=== PATIENT | female | born 1960 | race Caucasian/White ===

== ENCOUNTER 2017-02-26 16:45 | Inpatient (IN) | payer BC ==
[~2017-02-26] VITALS: Ht 152.4 cm; Wt 93.5 kg
[2017-02-26 17:30] VITALS: BP 101/63
[2017-02-26] MEDS ORDERED: ASPI-983 PO (18:38)
[2017-02-26] MEDS ORDERED: DILT120C82 PO (18:38)
[2017-02-26] MEDS ORDERED: POTA99TA7 PO (18:38)
[2017-02-26] MEDS ORDERED: HYDR12.5 PO (18:38)
[2017-02-26] MEDS ORDERED: LISI40TA PO (18:38)
[2017-02-26] MEDS ORDERED: METF1000 PO (18:38)
[2017-02-26] MEDS ORDERED: GABA-488 PO (18:38)
[2017-02-26] MEDS ORDERED: HYDR-3820 PO (18:38)
[2017-02-26] MEDS ORDERED: DICL50TA4 PO (18:38)
[2017-02-26] MEDS ORDERED: PEDI1TAB46 PO (18:38)
[2017-02-26] MEDS ORDERED: APIX5TAB PO (18:38)
[2017-02-26] MEDS: GABAPENTIN 300 MG (NEURONTIN) CAP PO SCH (20:24)
[2017-02-26] MEDS: inSUlin ASPART (NovoLOG) 1 UNIT/0.01 ML (CHARGE PER UNIT) SC SCH (20:24)
[2017-02-26] MEDS: ASPIRIN E.C. 81 MG (ECOTRIN) TAB PO SCH (20:24)
[2017-02-26] MEDS: APIXABAN 5 MG (ELIQUIS) TABLET PO SCH (20:24)
--- NOTE | 2017-02-26 23:01 | HISTORY AND PHYSICAL ---
DATE OF SERVICE: CHIEF COMPLAINT: Difficulty with walking. HISTORY OF PRESENT ILLNESS: The patient is a 57-year-old employed female who lives in [place], [place], who was admitted to [facility] in [place] for elective left total knee replacement for painful DJD refractory to conservative care. Postoperatively, she has shortness of breath and evaluation revealed a PE. The patient was seen by their hospitalist, Dr. Bojorquez and placed on Eliquis. The patient remained O2 dependent postoperatively and the patient is now referred to inpatient rehabilitation unit for ongoing therapies with the approval of her commercial health insurance.She also developed A FIb and meds provide for control of that. Currently, she requires assistance for her ADLs and mobility skills. She is min assist for transfers and gait with WW.Patient is SBA for upper body dressing and min assist for lower body dressing She had been independent prior to this. PAST MEDICAL HISTORY: Arthritis, claustrophobia, diabetes, hypertension, mitral valve prolapse. PAST SURGICAL HISTORY: x3, cholecystectomy, hernia repair. ALLERGIES: No known medication allergies. FAMILY HISTORY: Thyroid disease, diabetes, cancer, hypertension. SOCIAL HISTORY: No tobacco, occasional alcoholic beverage. Employed full-time. . Lives in a 2 story home. PCP: Dr. Nathaniel Mckenna REVIEW OF SYSTEMS: A 10-point review of systems significant for shortness of breath, knee pain. MEDICATIONS: Tramadol 50 mg p.o. q.6 hours p.r.n. pain, hydrocodone/APAP 10/325 one to 2 tablets p.o. q.4 hours p.r.n. pain, Tylenol 500 mg 2 tablets p.o. q.6 hours p.r.n. mild pain or fever, ferrous sulfate 325 mg p.o. daily. PHYSICAL EXAMINATION: Significant for. GENERAL: Significant for a pleasant female, appearing her stated age, alert and oriented, lying in bed, no acute distress. VITAL SIGNS: Within normal limits. She is afebrile. O2 sats are 92% on 2 liters of O2 by nasal cannula. HEENT: Vision speech hearing grossly intact. No oral lesion is noted. NECK: Supple without mass. HEART: Regular rhythm. LUNGS: Clear. ABDOMEN: Obese, soft, benign. Bowel sounds present. EXTREMITIES: The patient has a clean, dry, island dressing over the left knee. There is no calf tenderness, a slight edema in the left ankle. MUSCULOSKELETAL: The patient has functional strength and active range of motion both upper extremities and right lower extremity. Left knee with limited strength and AROM due to recent surgery.Left knee flexion 70 degrees/ extension +5 degrees She is able to active ankle dorsi and plantar flex. Sensation is grossly intact to touch. Cognitation grossly intact. ASSESSMENT: 1. Ambulatory dysfunction secondary degenerative joint disease left knee, status post left total knee replacement. Dr. Dang, [facility] in [place], [place]. 2. Postop pulmonary embolism, on Eliquis. 3. Postop respiratory insufficiency, on O2 by nasal cannula supplement. 4. Hypertension controlled medication. 5. Degenerative joint disease of the right knee. 6. Diabetes mellitus - metformin resumed. 7. Hypertension, controlled with medication. 8. Mitral valve prolapse. 9. New onset A FIB controlled with cardiazem PLAN: The patient was admitted to inpatient rehabilitation unit for a comprehensive program of orthopedic rehabilitation with goal of maximizing level of functional independence prior to discharge home with home health care. The patient will have PT, OT 90 minutes per day each discipline, 5 days a week for gait, strengthening, conditioning, passive and active range of motion of the left knee. ADL training, any patient family caregiver training necessary or any adaptive equipment and training necessary. Follow up with the hospitalist and Dr. Dang, orthopedics as per their schedule. Continue current medications Eliquis for further DVT prophylaxis and treatment of pulmonary embolism. Respiratory therapy to assist with O2 administration and monitoring O2 sats wean as able. Speech therapy to do cognitive assessment and treat as indicated. human services manager for discharge planning, community reentry. Estimated length of stay 7 to 10 days. PROGNOSIS: Rehab prognosis appears good for goal of discharging home with home health care modified independent to supervision for ADLs and mobility skills. DIET: Regular. CODE STATUS: Full code. Note: The patient's orthopedist diagnostic assistant called me with report today. The patient is weightbearing as tolerated. Job ID: [id number] DocumentID: [id number] Dictated Date: 02/26/2017 17:38:56 Associate Professor Of Sociology Date: 02/26/2017 23:01:04 Dictated By: HIREN BURNETT MD [facility]
[2017-02-27 05:57] VITALS: BP 120/72
[2017-02-27] MEDS: inSUlin ASPART (NovoLOG) 1 UNIT/0.01 ML (CHARGE PER UNIT) SC SCH ×4 (06:00→20:36)
[2017-02-27] MEDS: MULTIVIT W/MINERALS TAB (THERAGRAN M) PO SCH (06:14)
[2017-02-27] MEDS: HYDROcodone/APAP 10 MG/325 MG (LORTAB) TAB PO PRN ×2 (06:15→11:35)
[2017-02-27] MEDS ORDERED: INFLUENZA TRIvalent 2017-2018 0.5 ML/45 MCG SYR IM ONE (07:30)
[2017-02-27] MEDS: GABAPENTIN 300 MG (NEURONTIN) CAP PO SCH ×3 (08:18→20:36)
[2017-02-27] MEDS: APIXABAN 5 MG (ELIQUIS) TABLET PO SCH ×2 (08:18→20:36)
[2017-02-27] MEDS: HYDROCHLOROTHIAZIDE 12.5 MG (HCTZ) CAP PO SCH (08:18)
[2017-02-27] MEDS: lisINopril 20 MG (ZESTRIL) TAB PO SCH (08:18)
[2017-02-27] MEDS: ASPIRIN E.C. 81 MG (ECOTRIN) TAB PO SCH ×2 (08:18→20:36)
[2017-02-27] MEDS: DILTIAZEM 120 MG (CARDIZEM CD) CAP PO SCH (08:18)
--- NOTE | 2017-02-27 09:27 | Consultation-Hospitalist ---
HPI History of Present Illness: HPI/Chief Complaint CC: Medical management for new onset AF w/RVR and acute PE following left total knee replacement HPI: This is a 57yoWF clinic patient of [facility] Ferrell in [place], [place] and rarely sees Dr Dillard Cardiology for "fluttering" she experiences on occasion but "does not require any treatment for it" who presents to the IRU following slow recovery at [facility] in [place], [place] which included AF w/RVR on Sunday of which I managed conservatively with Lopressor 5mg IV x 3 doses 5 minutes before then maintained on PO Cardizem CD 120mg po daily but then did not ambulate well post- operatively and sustained an acute PE diagnosed on CT angiogram after suspicion from RN due to new oxygen requirement and tachycardia required the workup. She was placed on Lovenox 1mg/kg SQ at time of CT findings and then started on Eliquis which was started at 2100 last night. Currently she is doing well but did require O2 last night and feels really good. I talked to her about ROSIBEL and she suspects she has that condition but has never been tested and sometimes wakes up at night gasping for air. I spoke to Dr Barrera and he will see her in consultation. Source: patient Exam Limitations: no limitations Date Seen 02/27/17 Attending Physician Cj Zuñiga MD PCP No,Local Physician Referring Physician Date of Admission Feb 26, 2017 at 17:25 Home Medications & Allergies Home Medications Reviewed patient Home Medication Reconciliation Form Allergies Allergies Coded Allergies No Known Allergies (Verified Allergy, Unknown, 02/26/17) Past Bvpaoci-Bkiijt-Ycgnzd Hx Patient Social History Marrital Status: single Employed/Student: employed Alcohol Use: Denies Use Recreational Drug Use: No Smoking Status: Never a Smoker Physical Abuse Screen: No Sexual Abuse: No Recent Foreign Travel: No Contact w/other who traveled: No Recent Hopitalizations: Yes (LEFT TKR) Recent Infectious Disease Expo: No Seasonal Allergies Seasonal Allergies: Yes Surgeries Yes Orthopedic Respiratory Yes (PE dx post operatively 02/26/17) Currently Using CPAP: No Currently Using BIPAP: No Cardiovascular Yes Irregular Heartbeat Neurological No Genitourinary No Gastrointestinal No Musculoskeletal Yes Arthritis Endocrine History of Endocrine Disorders: Yes Endocrine Disorders: Diabetes, Non-Insulin dep Are Your Blood Sugars Over 250: No HEENT History of HEENT Disorders: No Cancer No Psychosocial History of Psychiatric Problem: Yes Behavioral Health Disorders: Depression Integumentary History of Skin or Integumenta: No Blood Transfusions History of Blood Disorders: No Family Medical History Family Hx: Cervical cancer DAUGHTERS FH: breast cancer 19 MOTHER FH: skin cancer DAUGHTERS DAUGHTERS Review of Systems Constitutional: see HPI, weakness EENTM: no symptoms reported Respiratory: dyspnea on exertion Cardiovascular: no symptoms reported Gastrointestinal: no symptoms reported Genitourinary: no symptoms reported Musculoskeletal: joint pain Skin: no symptoms reported Psychiatric/Neurological: No Symptoms Reported All Other Systems Reviewed Negative Unless Noted: Yes Physical Exam Physical Exam Vital Signs Vital Sign - Last 12Hours 02/26/17 02/26/17 17:30 20:00 Temp 100.6 Pulse 82 Resp 18 B/P (MAP) 101/63 Pulse Ox 93 O2 Delivery Nasal Cannula O2 Flow Rate 2.00 Capillary Refill : General Appearance: No Apparent Distress, WD/WN, Chronically ill, Obese Eyes: Bilateral Eye Normal Inspection, Bilateral Eye PERRL HEENT: PERRL/EOMI, Normal ENT Inspection, Pharynx Normal Neck: Full Range of Motion, Normal Inspection, Non Tender, Supple, Carotid Bruit, Other (increased circumference of neck) Respiratory: Chest Non Tender, Lungs Clear, Normal Breath Sounds, No Accessory Muscle Use, No Respiratory Distress Cardiovascular: Regular Rate, Rhythm, No Edema, No Gallop, No JVD, No Murmur, Normal Peripheral Pulses Gastrointestinal: Normal Bowel Sounds, No Organomegaly, No Pulsatile Mass, Non Tender, Soft Back: Normal Inspection, No CVA Tenderness, No Vertebral Tenderness Extremity: Normal Capillary Refill, Normal Inspection, Normal Range of Motion, Non Tender, No Calf Tenderness, No Pedal Edema Neurologic/Psychiatric: Alert, Oriented x3, No Motor/Sensory Deficits, Depressed Affect Skin: Normal Color, Warm/Dry Lymphatic: No Adenopathy Assessment/Plan Admission Diagnosis Assessment: Slow recovery following left total knee replacement per Dr Dang POD # [address] Acute PE dx on CT angiogram 02/26/17 at [facility] following left total knee replacement and slow ambulation post operatively placed on lovenox one time dose 1mg/kg then started Eliquis 10mg PO BID for 7 days then 5mg PO BID New onset AF w/RVR documented on EKG and Tely on Sunday02/24/17 managed with Lopressor 5mg IV x 3 doses then placed on Cardizem and now on Cardizem and NSR currently DM High risk of ROSIBEL consulting Dr Barrera HTN Hypokalemia Post op anemia Assessment and Plan Plan: Consult Dr Barrera for suspected ROSIBEL Eliquis as ordered treatment for acute PE Cardizem to maintain NSR for AF w/RVR Appreciate Dr Mcdaniel's help PT/OT Clinical Quality Measures DVT/VTE Risk/Contraindication: Risk Factor Score Per Nursin RFS Level Per Nursing on Admit: 3=High TREY AMATO DO Feb 27, 2017 09:27
[2017-02-27] MEDS ORDERED: HYDROcodone/APAP 10 MG/325 MG (LORTAB) TAB PO PRN (09:30)
--- NOTE | 2017-02-27 10:08 | Pulmonary Consultation ---
History of Present Illness History of Present Illness Date of Consultation 02/27/17 09:48 Date of Admission Allergies and Home Medications Allergies Coded Allergies: No Known Allergies (Verified Allergy, Unknown, 02/26/17) Home Medications Apixaban 5 Mg Tablet, 10 MG PO BID, #14 (Reported) 2 TABLETS TWICE DAILY X 7 DAYS Apixaban 5 Mg Tablet, 5 MG PO BID, (Reported) TO START AFTER ELIQUIS 10 MG BID X 7 DAYS Aspirin 81 Mg Tablet.dr, 81 MG PO BID, (Reported) Diclofenac Potassium 50 Mg Tablet, 50 MG PO TID, (Reported) Diltiazem HCl 120 Mg Cap.er.24h, 120 MG PO DAILY, (Reported) Gabapentin 300 Mg Capsule, 300 MG PO TID, (Reported) Hydrochlorothiazide 12.5 Mg Capsule, 12.5 MG PO DAILY, (Reported) Hydrocodone/Acetaminophen 1 Each Tablet, 2 TAB PO Q4H PRN for PAIN-MODERATE, ( Reported) Lisinopril 40 Mg Tablet, 40 MG PO DAILY, (Reported) Metformin HCl 1,000 Mg Tablet, 1,000 MG PO BID, (Reported) Pediatric Multivit Comb No.76 1 Each Tab.chew, 1 TAB PO DAILY, (Reported) Potassium 99 Mg Tablet, 99 MG PO DAILY, (Reported) Past Yqzogth-Vyatvu-Bufxwb Hx Patient Social History Alcohol Use: Denies Use Recreational Drug Use: No Smoking Status: Never a Smoker Recent Foreign Travel: No Contact w/Someone Who Travel: No Recent Infectious Disease Expo: No Recent Hopitalizations: Yes (LEFT TKR) Seasonal Allergies Seasonal Allergies: Yes Surgeries History of Surgeries: Yes Surgeries: Orthopedic Respiratory History of Respiratory Disorde: Yes (PE dx post operatively 02/26/17) Respiratory Disorders: Pulmonary Embolism Currently Using CPAP: No Currently Using BIPAP: No Cardiovascular History of Cardiac Disorders: Yes Cardiac Disorders: Irregular Heartbeat Neurological History of Neurological Disord: No Genitourinary History of Genitourinary Disor: No Gastrointestinal History of Gastrointestinal Di: No Musculoskeletal History of Musculoskeletal Dis: Yes Musculoskeletal Disorders: Arthritis Endocrine History of Endocrine Disorders: Yes Endocrine Disorders: Diabetes, Non-Insulin dep Are Your Blood Sugars Over 250: No HEENT History of HEENT Disorders: No Cancer History of Cancer: No Psychosocial History of Psychiatric Problem: Yes Behavioral Health Disorders: Depression Integumentary History of Skin or Integumenta: No Blood Transfusions History of Blood Disorders: No Family Medical History Family Medial History: Cervical cancer DAUGHTERS FH: breast cancer 19 MOTHER FH: skin cancer DAUGHTERS DAUGHTERS Exam Exam Vital Signs Date Time Temp Pulse Resp B/P (MAP) Pulse Ox O2 Delivery O2 Flow Rate FiO2 02/27/17 07:17 1.00 02/27/17 07:00 99.1 02/27/17 05:57 100.2 90 18 120/72 95 Nasal Cannula 2.00 02/26/17 22:46 92 2.00 02/26/17 20:01 Nasal Cannula 2.00 02/26/17 20:00 Nasal Cannula 2.00 02/26/17 17:30 100.6 82 18 101/63 93 General Appearance: No Apparent Distress, WD/WN, Chronically ill, Obese HEENT: PERRL/EOMI, Normal ENT Inspection, Pharynx Normal Neck: Full Range of Motion, Normal Inspection, Non Tender, Supple, Carotid Bruit, Other (increased circumference of neck) Respiratory: Chest Non Tender, Lungs Clear, Normal Breath Sounds, No Accessory Muscle Use, No Respiratory Distress Cardiovascular: Regular Rate, Rhythm, No Edema, No Gallop, No JVD, No Murmur, Normal Peripheral Pulses Extremity: Normal Capillary Refill, Normal Inspection, Normal Range of Motion, Non Tender, No Calf Tenderness, No Pedal Edema Neurologic/Psychiatric: Alert, Oriented x3, No Motor/Sensory Deficits, Depressed Affect Skin: Normal Color, Warm/Dry Lymphatic: No Adenopathy Clinical Quality Measures DVT/VTE Risk/Contraindication: Risk Factor Score Per Nursin RFS Level Per Nursing on Admit: 3=High SPIKE ALTAMIRANO DO Feb 27, 2017 10:08
--- NOTE | 2017-02-27 10:27 | PM&R Post Admission Assessment ---
Post Admission Physician Asses The preadmission screen agrees with the post admission assessment that the patient is a good candidate for inpatient rehabilitation. The patient will have a comprehensive program of inpatient rehabilitation with a goal of maximizing level of functional independence prior to discharge home with family and HHC. The patient will have PT/OT ninety minutes per day, each discipline, five days a week for gait, strengthening, conditioning, balance, ADLs, any patient/family/caregiver training as necessary. Speech therapy to do cognitive assessment and treat as indicated. Rehabilitation nursing to assist with bowel, bladder, skin, wound care, medication administration, pain management. Technical Support Director to assist with discharge planning, community reentry. SCD's for DVT prophylaxis. She appears to be well motivated to participate in three hours of therapy a day. She should be able to tolerate three hours of therapy a day from a medical and surgical standpoint. She should benefit from the three hours of therapy a day. She has a reasonable discharge plan, reasonable discharge rehabilitation goals and a supportive family. She has various comorbidities that need to be closely monitored with medications and treatments adjusted on a daily basis as needed. These include: Postop PULM embolism on 02 supplement Post op Afib on meds DM Probable ROSIBEL HTN Hypokalemia Postop anemia Barriers to discharge for this patient who had been independent prior to this are for her to be modified independent to supervision for ADLs and mobility skills prior to discharge home with [family], so as to lessen the burden of the caregivers. Risks for this patient include: 1. Fall 2. Fracture 3. DVT 4. Recurrent Pulmonary embolism 5. Wound infection 6. Skin breakdown 7. Contractures 8. Poorly controlled pain 9. Urinary retention 10. UTI 11. Respiratory infection 12. Aspiration 13. Poorly controlled DM 14. Poorly controlled HTN 15.Worsening Resp insufficiency 16.Worsening Electrolyte abnormailty 17. Worsening Postop anemia Estimated Length of Stay: 10 days Prognosis: Rehab prognosis appears good for goal of discharge home with family and HHC modified independent to supervision for ADLs and mobility skills. HIREN BURNETT MD Feb 27, 2017 10:27
--- NOTE | 2017-02-27 10:34 | PM & R (SOAP) Progress Note ---
Subjective Time Seen by Provider: 10:20 Subjective/Events-last exam Patient was seen in the [facility] this AM Adjusting well to unit. Appreciate DR Woody notes and orders. Accuchecks noted Review of Systems Pulmonary: Dyspnea Musculoskeletal: leg pain Objective Exam Last Set of Vital Signs Vital Signs Date Time Temp Pulse Resp B/P (MAP) Pulse Ox O2 Delivery O2 Flow Rate FiO2 02/27/17 09:00 Nasal Cannula 2.00 02/27/17 07:00 99.1 02/27/17 05:57 90 18 120/72 95 Capillary Refill : I&O Intake and Output 02/28/17 00:00 Intake Total 300 ml Balance 300 ml Intake Oral 300 ml # Voids 2 # Bowel Movements 1 General: Alert, Oriented X3, Cooperative, No Acute Distress HEENT: Atraumatic, PERRLA, EOMI, Mucous Memb Moist/Novelty, Other (02 by N/C in place) Neck: Supple, No JVD Lungs: Clear to Auscultation Heart: Regular Rate Abdomen: Normal Bowel Sounds, Soft, No Tenderness Extremities: Other (island dressing left knee) Neuro: Other (Limited AROM of left knee otherwise functional strength) Results Lab Laboratory Tests 02/26/17 20:22: Glucometer 187H 02/27/17 05:51: Glucometer 134H Assessment/Plan Assessment S/P LTKR for painful DJD OSH Postop afib now controlled with meds Postop PE on Eliquis Postop Resp insuffiency on supplemental 02 DM controlled Possible ROSIBEL DR Barrera has seen today HTN controlled Hypokalemia Postop anemia Plan Continue PT/OT Team Conference tomorrow F/u with DR Fuentes and Ortho prn Wean from 02 as able if OK with DR Barrera. HIREN BURNETT MD Feb 27, 2017 10:34
--- NOTE | 2017-02-27 10:50 | Physical Therapy Evaluation ---
PT Evaluation-General Medical Diagnosis Admission Date Feb 26, 2017 at 17:25 Medical Diagnosis: left TKA and pulmonary embolism Onset Date: Feb 26, 2017 Therapy Diagnosis Therapy Diagnosis: impaired mobility, strength, endurance, ROM Height/Weight Height (Feet): 5 Height (Inches): 0.00 Weight (Pounds): 206 Weight (Ounces): 1.6 Precautions Precautions/Isolations: Fall Prevention, Standard Precautions Weight Bear Status Right Lower Extremity: Right Full Weight Bearing Left Lower Extremity: Left Weight Bearing/Tolerated Referral Physician: Yogesh Reason for Referral: Evaluation/Treatment Medical History Pertinent Medical History: Arthritis, DM, HTN Additional Medical History claustrophobia, mitral valve prolapse, x3, cholecystectomy, hernia repair Current History Patient had a left TKA and postoperatively had a PE Reviewed History: Yes Social History Home: Single Level Current Living Status: Entry Into Home: Ramp Patient states she will be going to stay with a friend for a while after discharge and she has a ramp to enter her home Prior/Core FIM Prior Level of Function Functional [place] Measure 0=Not Assessed/NA 4=Minimal Assistance 1=Total Assistance 5=Supervision or Setup 2=Maximal Assistance 6=Modified [place] 3=Moderate Assistance 7=Complete [place] Bed Mobility: 6 Transfers (B,C,W/C) (FIM): 6 Gait: 6 Patient states that shortly before her surgery she was using a rolling walker PT Evaluation-Current Subjective Patient in bed pre tx, agrees to PT, has no pain at rest but 6/10 pain in her left knee during weight bearing. Patient has the polar care from the other facility but no CPM (which she states she would like to have) so we will get that set up for her. Patient came by ambulance. Pt/Family Goals "to get off the oxygen and get stronger Objective Patient Orientation: Place, Situation Attachments: Oxygen 1L of O2 nasal canula ROM/Strength ROM Lower Extremities left knee flexion 70 degrees, extension +5 degrees Strenght Lower Extremities NT due to recent surgery Integumentary/Posture Bowel Incontinence: No Neuromuscular (Tone, Coordination, Reflexes) NT Sensory Vision: Functional Hearing: Functional Sensation Left Lower Extremity: Intact Sensation Lower Extremities Patient has no complaints of numbness or tingling. Transfers Functional [place] Measure 0=Not Assessed/NA 4=Minimal Assistance 1=Total Assistance 5=Supervision or Setup 2=Maximal Assistance 6=Modified [place] 3=Moderate Assistance 7=Complete IndependenceIRFPAI Quality Coding Scale 6 Independent with activity with or without an assistive device 5 Patient requires set up or clean up by helper. Patient completes activity by themselves 4 Supervision or touching assist (CGA). [place] provide cues , steadying assist 3 The helper provides less than half the effort to complete the activity 2 The helper provides more than half the effort to complete the activity 1 Dependent. The helper does all the effort to complete an activity 7 Patient refused to complete or attempt activity 9 The patient did not perform the activity before the current illness or injury 88 Not attempted due to Medical conditions or safety concerns Transfers (B, C, W/C) (FIM): 4 Scootin Rollin Roll Left to Right (QC): 4 Supine to/from Sit: 4 Sit to/from Stand: 4 Sit to Lying (QC): 3 Lying to Sitting/Side of Bed(Q: 3 Sit to Stand (QC): 4 Patient performs bed mobility with SBA, supine <-> sit with min assist and sit to stand with CGA. Good use of hand placement and safety awareness. Gait Does the Patient Walk?: Yes Mode of Locomotion: Walk Anticipated Mode of Locomotion: Walk Gait (FIM): 4 Walk 10 feet (QC): 4 Walk 50 ft with 2 Turns(QC): 4 Walk 150 ft (QC): 4 Walking 10ft/uneven surface-QC: 4 Distance: 150'x2 Gait Level of Assist: 4 Gait Persons Needed: 1 Gait Assistive Device: FWW Comments/Gait Description Patient can ambulate 150' with a rolling walker with CGA, including 50' with at least 2 turns of 90 degrees and 10' over an uneven surface. Gait is antalgic, and has flexed left knee. Wheelchair Training Does the Pt Use a Wheelchair?: No Stairs Stairs (FIM): 2 #of Steps: 4 Level of Assist: 4 1 Step (curb) (QC): 4 4 Steps (QC): 4 12 Steps (QC): 88 Patient can go up and down 4 steps using 2 handrails with CGA. She needs close guarding due to unsteadiness and cues for foot placement. Balance Sitting Static: Normal Sitting Dynamic: Normal Standing Static: Fair Standing Dynamic: Fair Picking up an Object (QC): 88 Treatment LAQ left side for 5 min, supine total knee protocol x10 (AP, QS, HS, SAQ, SLR), parallel bars x10 (heel raises, hamstring curls, hip abd, mini-squats) Assessment/Needs Patient has impaired mobility, strength, endurance, ROM post left TKA and pulmonary embolism. Patient left with CPM donned and also [facility] care. CPM set at -2 degrees extension and 60 degrees flexion. Rehab Potential: Fair PT Short Term Goals Short Term Goals Time Frame: Mar 06, 2017 Transfers (B,C,W/C) (FIM): 5 Gait (FIM): 5 Gait Distance Comment: 250' Gait Level of Assist: 5 Gait Assistive Device: FWW PT Classroom Technology Technician Goals Classroom Technology Technician Goals PT Halfway Goals Time Frame: Mar 20, 2017 Transfers (B,C,W/C) (FIM): 6 Sit to Lying (QC): 6 Lying-Sitting on Side/Bed(QC): 6 Sit to Stand (QC): 6 Rollin Roll Left to Right (QC): 6 Car Transfer (QC): 4 Gait (FIM): 6 Distance: 300' Walk 10 feet (QC): 6 Walk 10ft-Uneven Surface(QC): 6 Walk 50ft with 2 Turns (QC): 6 Walk 150 ft (QC): 6 Gait Assistive Device: FWW Stairs (FIM): 5 # of Steps: 12 1 Step (curb) (QC): 4 4 Steps (QC): 4 12 Steps (QC): 4 Stairs Level Of Assist: 5 PT Plan Problem List Problem List: Activity Tolerance, Functional Strength, Safety, Balance, Gait, Transfer, Bed Mobility, ROM Treatment/Plan Treatment Plan: Continue Plan of Care Treatment Plan: Bed Mobility, Education, Functional Activity Dara, Functional Strength, Group Therapy, Gait, Safety, Therapeutic Exercise, Transfers Treatment Duration: Mar 20, 2017 Frequency: At least 5 of 7 days/Wk (IRF) Estimated Hrs Per Day: 1.5 hours per day Patient and/or Family Agrees t: Yes Safety Risks/Education Patient Education: Gait Training, Transfer Techniques, Steps, Reviewed Use of Ice, Correct Positioning, Disease Process, Safety Issues Teaching Recipient: Patient Teaching Methods: Demonstration, Discussion Response to Teaching: Reinforcement Needed Discharge Recommendations Plan Patient will perform bed mobility and transfer training, balance and endurance training, functional strengthening, stair training, gait training, and education , to improve functional mobility and independence at home. Therapy D/C Recommendations: Home w/ Family Support Time/GCodes Time In: 930 Time Out: 1102 Total Billed Treatment Time: 92 Total Billed Treatment 1 visit EVL 30' FA 15' GT 15' EX 30' EVON JUSTIN PT Feb 27, 2017 10:50
--- NOTE | 2017-02-27 10:58 | Occupational Therapy Eval ---
OT Evaluation-General/PLF Medical Diagnosis Admission Date Feb 26, 2017 at 17:25 Medical Diagnosis: Left TKA, PE Onset Date: Feb 23, 2017 Therapy Diagnosis Therapy Diagnosis: decreased self care skills Height/Weight Height (Feet): 5 Height (Inches): 0.00 Weight (Pounds): 206 Weight (Ounces): 1.6 Precautions Precautions/Isolations: Fall Prevention, Standard Precautions Safety Interventions: None Referral Physician: Yogesh Medical History Pertinent Medical History: Arthritis, DM, HTN Additional Medical History Mitral valve prolapse Current History Pt s/p left TKA and PE Reviewed History: Yes Social History Home: Multilevel (stays on main level) Current Living Status: Alone Entry Into Home: Stairs With Railing, Stairs Without Railing Steps Into Home: 2 Pt states she will be staying with a friend at d/c. Friend's home has a ramp to enter and a walk in shower. ADL-Prior Level of Function ADL PLOF Comments Pt reports being independent with all self care and mobility. Works as a principal mechanical engineer at the school DME/Equipment: Shower Occupation: [employer] Self: Yes OT Current Status Subjective Pt in bed, agrees to treatment. Pt reports 4/10 pain in left knee. Mental Status/Objective Patient Orientation: Person, Place, Time, Situation Attachments: Oxygen (1L) Current Glasses/Contacts: Yes (reading) Hearing Aids: No Dentures/Partials: No Hand Dominance: Right Upper Extremity ROM Grossly WFL Upper Extremity Coordination Intact Upper Extremity Strength Grossly WFL ADL-Treatment ADL-Current Pt supine to sit with supervision and increased time. Pt requests shower this morning. Gait to restroom with FWW. Transfer to toilet with CGA using FWW. Pt able to manage toileting hygiene and clothing management with SBA. Transfer to walk in shower with CGA and cues for safety. Uses grab bars for balance. Pt doffed shirt with SBA. Pt able to doff right sock, requires assist to doff left sock. Upper body bathing completed with set up. Pt unable to reach left foot without adaptive equipment. Pt used long handled sponge to wash left lower leg and foot. Don bra and pullover shirt with set up. Pt donned underwear and shorts with minimal assistance to start over left foot. Stood with CGA for balance during pant hike. Assist required to don KIRSTIE hose. Pt able to don right sock, but required assist for left sock. Instruction provided regarding use of sock aid. Pt able to don left sock with set up using sock aid. Grooming tasks completed standing at sink. Pt combed hair and brushed teeth with SBA. Pt returned to bed. Sit to supine with min assist for left LE. Pt in bed with needs met after session. Functional [place] Measure 0=Not Assessed/NA 4=Minimal Assistance 1=Total Assistance 5=Supervision or Setup 2=Maximal Assistance 6=Modified [place] 3=Moderate Assistance 7=Complete IndependenceIRFPAI Quality Coding Scale 6 Independent with activity with or without an assistive device 5 Patient requires set up or clean up by helper. Patient completes activity by themselves 4 Supervision or touching assist (CGA). [place] provide cues , steadying assist 3 The helper provides less than half the effort to complete the activity 2 The helper provides more than half the effort to complete the activity 1 Dependent. The helper does all the effort to complete an activity 7 Patient refused to complete or attempt activity 9 The patient did not perform the activity before the current illness or injury 88 Not attempted due to Medical conditions or safety concerns Eating (FIM): 7 (Pt reports feeding self, managing containers, and cutting food without assistance.) Eating (QC): 6 Grooming (FIM): 5 Oral Hygiene (QC): 4 Bathing (FIM): 4 Shower/Bathe Self (QC): 3 Upper Body Dressing (FIM): 5 Upper Body Dressing (QC): 5 Lower Body Dressing (FIM): 4 Lower Body Dressing (QC): 3 On/Off Footwear (QC): 3 Toileting (FIM): 5 Toileting Hygiene (QC): 4 Toilet/Commode Transfer (FIM): 4 (CGA) Toilet Transfer (QC): 4 (CGA) Shower Transfer (FIM): 4 (CGA) Other Treatments Pt arrived to ARU via ambulance on 02/26/17. Education OT Patient Education: Rehab process Teaching Recipient: Patient Teaching Methods: Discussion Response to Teaching: Verbalize Understanding OT Short Term Goals Short Term Goals Time Frame: Mar 06, 2017 Bathing(FIM): 5 Toilet/Commode Transfer(FIM): 5 1=Demonstrate adherence to instructed precautions during ADL tasks. 2=Patient will verbalize/demonstrate understanding of assistive devices/ modifications for ADL. 3=Patient will improve strength/tolerance for activity to enable patient to perform ADL's. OT Motor Pool Driver Goals Motor Pool Driver Goals Time Frame: Mar 20, 2017 Eating (FIM): 7 Eating (QC): 6 Groomin Oral Hygiene (QC): 6 Bathing(FIM): 6 Shower/Bathe Self (QC): 6 Upper Body Dressing(FIM): 6 Upper Body Dressing (QC): 6 Lower Body Dressing(FIM): 5 Lower Body Dressing (QC): 5 On/Off Footwear (QC): 6 Toileting(FIM): 6 Toileting Hygiene (QC): 6 Toilet/Commode Transfer(FIM): 6 Toilet/Commode Transfer (QC): 6 Shower Transfer(FIM): 6 Additional Goals: 2-Verbalize Understanding, 3-ImproveStrength/Dara 1=Demonstrate adherence to instructed precautions during ADL tasks. 2=Patient will verbalize/demonstrate understanding of assistive devices/ modifications for ADL. 3=Patient will improve strength/tolerance for activity to enable patient to perform ADL's. OT Education/Plan Problem List/Assessment Assessment: Decreased Activ Tolerance, Decreased UE Strength, Dependent Transfers, Impaired Self-Care Skills Pt s/p left TKA with post operative PE. Pt demonstrates decreased ADL functioning, mobility, strength, and activity tolerance. Pt to benefit from skilled OT intervention for ADL training, transfers, strengthening, home safety education, and adaptive equipment instruction to improve level of independence and allow safe discharge. Discharge Recommendations Plan/Recommendations: Continue POC Treatment Plan/Plan of Care Treatment,Training & Education: Yes Patient would benefit from OT for education, treatment and training to promote independence in ADL's, mobility, safety and/or upper extremity function for ADL' s. Plan of Care: ADL Retraining, Functional Mobility, Group Exercise/Act as Ind, UE Funct Exercise/Act Treatment Duration: Mar 20, 2017 Frequency: At least 5 of 7 days/Wk (IRF) Estimated Hrs Per Day: 1.5 hours per day Agreement: Yes Rehab Potential: Good Time/GCodes Start Time: 08:15 Stop Time: 09:30 Total Time Billed (hr/min): 75 Billed Treatment Time 1 visit, EVL(15minutes), ADLx4(60minutes) DASHA SHELTON OT Feb 27, 2017 10:58
--- NOTE | 2017-02-27 11:26 | ST Cognitive Linguistic Eval ---
Speech Evaluation-General Medical Diagnosis left TKA and pulmonary embolism Onset Date: Feb 26, 2017 Therapy Diagnosis Therapy Diagnosis: Cognitive Linguistic Skills WNL Precautions Precautions/Isolations: Fall Prevention, Standard Precautions Referral Referring Physician: Dr. Cj Zuñiga Reason for Referral: Evaluation/Treatment Cognitive Evaluation Medical History Pertinent Medical History: Arthritis, DM, HTN Reviewed History: Yes Social History Current Living Status: Speech PLF-Current Status Prior Level of Function The patient denied prior challenges with cognition, speech, or language. Subjective The patient was admitted to [facility] following a total knee replacement and pulmonary emboli. The patient greeted the clinician appropriately and was agreeable to participation in the cognitive evaluation. Language Eval: Auditory Comprehends Simple Yes/No Ques: Functional Indent/Objects Multiple Hurd: Functional Ident/Pics in Multiple Hurd: Functional Follows 1-Step Commands: Functional Follows Complex Directions: Functional Follows General Conversations: Functional Language Eval: Verbal Language Completes Spontaneous Greeting: Functional Produces Auto, Serial Info: Functional Imitates Simple Words/Phrases: Functional Word Finding: Functional Requests Basic Needs: Functional States Basic Personal Info: Functional Expresses Complex Ideas: Functional Cognitive Patient Orientation The patient was independently oriented to location, city, month, and year. Objective Cognitive Domain Attention: WNL Memory: WNL Problem Solving: Functional Executive Functions: WNL Objective Impression The patient displayed cognitive linguistic skills within normal limits and appropriate for completion of ADL tasks. Communication/Social Cognition Comprehension: 6 Expression: 6 Social Interaction: 6 Problem Solvin Memory: 6 Speech Patient Assess Expression of Ideas/Wants: Expression (4) Understanding [place] Content: Understands (4) Brief Interview-Mental Status: Yes Repetition of Three Words: Three (3) Temporal Orientation: Year: Correct (3) Temporal Orientation: Month: Accurate within 5 days(2) Temporal Orientation: Day: Incorrect or No Answer(0) Recall : Wear to say "Sock": Yes,after cueing (1) Recall : Color: Yes, no cue required (2) Recall : Bed: Yes, no cue required (2) Speech-Plan Treatment Plan Speech Therapy Treatment Plan: Discontinue ST Evaluation, only. Frequency: Modified Program (IRF) (Evaluation, only.) Estimated Hrs Per Day: Other (Evaluation, only.) Rehab Potential: Fair Safety Risks/Education Teaching Recipient: Patient Teaching Methods: Discussion Response to Teaching: Verbalize Understanding Education Topics Provided: Results, Recommendations, Plan of Care Time Speech Therapy Time In: 11:00 Speech Therapy Time Out: 11:15 Total Billed Time: 15 Billed Treatment Time 1, ADDIE LOBO Feb 27, 2017 11:26
[2017-02-27] MEDS: DICLOFENAC POTASSIUM 50 MG PO SCH ×2 (11:35→16:36)
[2017-02-27] MEDS ORDERED: GABAPENTIN 300 MG (NEURONTIN) CAP PO SCH (13:00)
--- NOTE | 2017-02-27 14:04 | Occupational Ther Daily Note ---
OT Current Status-Daily Note Subjective Pt in bed with family present. Pt reports 6/10 pain in left knee, requests pain meds. RN notified and provided medication. Mental Status/Objective Functional [place] Measure 0=Not Assessed/NA 4=Minimal Assistance 1=Total Assistance 5=Supervision or Setup 2=Maximal Assistance 6=Modified [place] 3=Moderate Assistance 7=Complete [place] Attachments: Oxygen ADL-Treatment Functional [place] Measure 0=Not Assessed/NA 4=Minimal Assistance 1=Total Assistance 5=Supervision or Setup 2=Maximal Assistance 6=Modified [place] 3=Moderate Assistance 7=Complete IndependenceIRFPAI Quality Coding Scale 6 Independent with activity with or without an assistive device 5 Patient requires set up or clean up by helper. Patient completes activity by themselves 4 Supervision or touching assist (CGA). [place] provide cues , steadying assist 3 The helper provides less than half the effort to complete the activity 2 The helper provides more than half the effort to complete the activity 1 Dependent. The helper does all the effort to complete an activity 7 Patient refused to complete or attempt activity 9 The patient did not perform the activity before the current illness or injury 88 Not attempted due to Medical conditions or safety concerns Other Treatment Pt in bed with CPM in place. Pt agrees to UE exercises. Pt completed bilateral UE exercises to promote increased strength needed for ADLs and transfers. Pt performed shoulder flexion, abduction, biceps curls, and triceps extension exercises x20 reps with moderate resistance (red) theraband. Rest breaks taken between exercises. Occasional cues required for proper exercise technique. Pt resting in bed with needs met and family present after session. OT Short Term Goals Short Term Goals Time Frame: Mar 06, 2017 Bathing(FIM): 5 Transfers (B,C,W/C) (FIM): 5 Toilet/Commode Transfer(FIM): 5 1=Demonstrate adherence to instructed precautions during ADL tasks. 2=Patient will verbalize/demonstrate understanding of assistive devices/ modifications for ADL. 3=Patient will improve strength/tolerance for activity to enable patient to perform ADL's. OT Residential Goals Residential Goals Time Frame: Mar 20, 2017 Eating (FIM): 7 Eating (QC): 6 Groomin Oral Hygiene (QC): 6 Bathing(FIM): 6 Shower/Bathe Self (QC): 6 Upper Body Dressing(FIM): 6 Upper Body Dressing (QC): 6 Lower Body Dressing(FIM): 5 Lower Body Dressing (QC): 5 On/Off Footwear (QC): 6 Toileting(FIM): 6 Toileting Hygiene (QC): 6 Toilet/Commode Transfer(FIM): 6 Toilet/Commode Transfer (QC): 6 Shower Transfer(FIM): 6 Additional Goals: 2-Verbalize Understanding, 3-ImproveStrength/Dara 1=Demonstrate adherence to instructed precautions during ADL tasks. 2=Patient will verbalize/demonstrate understanding of assistive devices/ modifications for ADL. 3=Patient will improve strength/tolerance for activity to enable patient to perform ADL's. OT Education/Plan Discharge Recommendations Plan/Recommendations: Continue POC Treatment Plan/Plan of Care Patient would benefit from OT for education, treatment and training to promote independence in ADL's, mobility, safety and/or upper extremity function for ADL' s. Plan of Care: ADL Retraining, Functional Mobility, Group Exercise/Act as Ind, UE Funct Exercise/Act Treatment Duration: Mar 20, 2017 Frequency: At least 5 of 7 days/Wk (IRF) Estimated Hrs Per Day: 1.5 hours per day Agreement: Yes Rehab Potential: Good Time/GCodes Start Time: 11:25 Stop Time: 11:40 Total Time Billed (hr/min): 15 Billed Treatment Time 1 visit, EX(15minutes) DASHA SHELTON OT Feb 27, 2017 14:04
[2017-02-27 18:02] VITALS: BP 104/67
[2017-02-27] MEDS ORDERED: APIXABAN 5 MG (ELIQUIS) TABLET PO SCH ×2 (21:00)
[2017-02-27] MEDS ORDERED: ASPIRIN E.C. 81 MG (ECOTRIN) TAB PO SCH (21:00)
[2017-02-28 05:07] VITALS: BP 114/74
[2017-02-28] MEDS: inSUlin ASPART (NovoLOG) 1 UNIT/0.01 ML (CHARGE PER UNIT) SC SCH ×2 (05:42→11:01)
[2017-02-28] MEDS: MULTIVIT W/MINERALS TAB (THERAGRAN M) PO SCH (06:11)
[2017-02-28] MEDS: metFORMIN 500 MG (GLUCOPHAGE) TAB PO SCH (06:12)
[2017-02-28] MEDS: DICLOFENAC POTASSIUM 50 MG PO SCH ×3 (06:12→16:58)
--- NOTE | 2017-02-28 08:21 | Pulmonary Consultation ---
History of Present Illness History of Present Illness Date of Consultation 02/28/17 08:16 Time Seen by Provider: 08:16 Date of Admission History of Present Illness 57yo with hx of PE, and Afib, pt presented for inpatient rehab following a slow recovery at [facility]. Pt is on Eliquis for PE treatment. I am consulted for pulmonary management and suspicion of ROSIBEL. PT does occasionally wake up gasping for air. She has been requiring oxygen since development of PE. Allergies and Home Medications Allergies Coded Allergies: No Known Allergies (Verified Allergy, Unknown, 02/26/17) Home Medications Apixaban 5 Mg Tablet, 5 MG PO BID for 30 Days, #60 Prescribed by: HIREN BURNETT on 03/01/171903 Apixaban 5 Mg Tablet, 10 MG PO BID for 2 Days, #8 Prescribed by: HIREN BURNETT on 03/01/171903 Aspirin 81 Mg Tablet.dr, 81 MG PO BID, (Reported) Diltiazem HCl 120 Mg Cap.er.24h, 120 MG PO DAILY for 30 Days, #30 Prescribed by: HIREN BURNETT on 03/01/171903 Gabapentin 300 Mg Capsule, 300 MG PO TID, (Reported) Hydrochlorothiazide 12.5 Mg Capsule, 12.5 MG PO DAILY, (Reported) Hydrocodone/Acetaminophen 1 Each Tablet, 2 TAB PO Q4H PRN for PAIN-MODERATE, ( Reported) Lisinopril 40 Mg Tablet, 40 MG PO DAILY for 30 Days, #30 Prescribed by: HIREN BURNETT on 03/01/171903 Metformin HCl 500 Mg Tablet, 1,000 MG PO DAILY@07 for 30 Days, #30 Prescribed by: HIREN BURNETT on 03/01/171903 Pediatric Multivit Comb No.76 1 Each Tab.chew, 1 TAB PO DAILY, (Reported) Potassium 99 Mg Tablet, 99 MG PO DAILY, (Reported) Past Dsjrcqj-Hyacgk-Eksnog Hx Patient Social History Alcohol Use: Denies Use Recreational Drug Use: No Smoking Status: Never a Smoker Recent Foreign Travel: No Contact w/Someone Who Travel: No Recent Infectious Disease Expo: No Recent Hopitalizations: Yes (LEFT TKR) Seasonal Allergies Seasonal Allergies: Yes Surgeries History of Surgeries: Yes Surgeries: Orthopedic Respiratory History of Respiratory Disorde: Yes (PE dx post operatively 02/26/17) Respiratory Disorders: Pulmonary Embolism Currently Using CPAP: No Currently Using BIPAP: No Cardiovascular History of Cardiac Disorders: Yes Cardiac Disorders: Irregular Heartbeat Neurological History of Neurological Disord: No Genitourinary History of Genitourinary Disor: No Gastrointestinal History of Gastrointestinal Di: No Musculoskeletal History of Musculoskeletal Dis: Yes Musculoskeletal Disorders: Arthritis Endocrine History of Endocrine Disorders: Yes Endocrine Disorders: Diabetes, Non-Insulin dep Are Your Blood Sugars Over 250: No HEENT History of HEENT Disorders: No Cancer History of Cancer: No Psychosocial History of Psychiatric Problem: Yes Behavioral Health Disorders: Depression Integumentary History of Skin or Integumenta: No Blood Transfusions History of Blood Disorders: No Family Medical History Family Medial History: Cervical cancer DAUGHTERS FH: breast cancer 19 MOTHER FH: skin cancer DAUGHTERS DAUGHTERS Review of Systems Time Seen by Provider: 07:37 Exam Exam Vital Signs Date Time Temp Pulse Resp B/P (MAP) Pulse Ox O2 Delivery O2 Flow Rate FiO2 02/28/17 05:07 98.5 84 18 114/74 96 Nasal Cannula 2.00 02/27/17 20:10 Nasal Cannula 2.00 02/27/17 18:02 97.8 78 14 104/67 98 Nasal Cannula 2.00 02/27/17 09:00 Nasal Cannula 2.00 General Appearance: No Apparent Distress, WD/WN, Chronically ill, Obese HEENT: PERRL/EOMI, Normal ENT Inspection, Pharynx Normal Neck: Full Range of Motion, Normal Inspection, Non Tender, Supple, Carotid Bruit, Other (increased circumference of neck) Respiratory: Chest Non Tender, Lungs Clear, Normal Breath Sounds, No Accessory Muscle Use, No Respiratory Distress Cardiovascular: Regular Rate, Rhythm, No Edema, No Gallop, No JVD, No Murmur, Normal Peripheral Pulses Extremity: Normal Capillary Refill, Normal Inspection, Normal Range of Motion, Non Tender, No Calf Tenderness, No Pedal Edema Neurologic/Psychiatric: Alert, Oriented x3, No Motor/Sensory Deficits, Depressed Affect Skin: Normal Color, Warm/Dry Lymphatic: No Adenopathy Assessment/Plan Assessment/Plan Dyspnea and hypoxia secondary to PE -Continue Eliquis -Will obtain baseline CXR Afib -Eliquis EDS, waking up gasping for air, snoring, nocturnal hypoxia -Will arrange for out patient PSG in the lab secondary to oxygen requirements. 254 Clinical Quality Measures DVT/VTE Risk/Contraindication: Risk Factor Score Per Nursin RFS Level Per Nursing on Admit: 3=High SPIKE ALTAMIRANO DO Feb 28, 2017 08:21
[2017-02-28] MEDS: APIXABAN 5 MG (ELIQUIS) TABLET PO SCH ×2 (08:42→20:28)
[2017-02-28] MEDS: HYDROCHLOROTHIAZIDE 12.5 MG (HCTZ) CAP PO SCH (08:42)
[2017-02-28] MEDS: HYDROcodone/APAP 10 MG/325 MG (LORTAB) TAB PO PRN (08:42)
[2017-02-28] MEDS: GABAPENTIN 300 MG (NEURONTIN) CAP PO SCH ×3 (08:42→20:28)
[2017-02-28] MEDS: DILTIAZEM 120 MG (CARDIZEM CD) CAP PO SCH (08:43)
[2017-02-28] MEDS: lisINopril 20 MG (ZESTRIL) TAB PO SCH (08:43)
[2017-02-28] MEDS: ASPIRIN E.C. 81 MG (ECOTRIN) TAB PO SCH ×2 (08:43→20:28)
[2017-02-28] MEDS ORDERED: lisINopril 20 MG (ZESTRIL) TAB PO SCH (09:00)
[2017-02-28] MEDS ORDERED: DILTIAZEM 120 MG (CARDIZEM CD) CAP PO SCH (09:00)
[2017-02-28] MEDS ORDERED: HYDROCHLOROTHIAZIDE 12.5 MG (HCTZ) CAP PO SCH (09:00)
--- NOTE | 2017-02-28 10:04 | PM & R (SOAP) Progress Note ---
Subjective Time Seen by Provider: 09:10 Subjective/Events-last exam Patient was seen in her room this AM Appreciate DR Carlos note Patient min assist for transfers Review of Systems Musculoskeletal: leg pain Objective Exam Last Set of Vital Signs Vital Signs Date Time Temp Pulse Resp B/P (MAP) Pulse Ox O2 Delivery O2 Flow Rate FiO2 02/28/17 09:58 Nasal Cannula 2.00 02/28/17 05:07 98.5 84 18 114/74 96 Capillary Refill : I&O Intake and Output 03/01/17 00:00 Intake Total 250 ml Balance 250 ml Intake Oral 250 ml # Voids 2 General: Alert, Oriented X3, Cooperative, No Acute Distress HEENT: Atraumatic, PERRLA, EOMI, Mucous Memb Moist/[place], Other (02 by N/C in place) Neck: Supple, No JVD Lungs: Clear to Auscultation Heart: Regular Rate Abdomen: Normal Bowel Sounds, Soft, No Tenderness Extremities: Other (island dressing left knee) Neuro: Other (Limited AROM of left knee otherwise functional strength) Results Lab Laboratory Tests 02/26/17 20:22: Glucometer 187H 02/27/17 05:51: Glucometer 134H 02/27/17 10:56: Glucometer 151H 02/27/17 16:01: Glucometer 152H 02/27/17 20:09: Glucometer 235H 02/28/17 05:32: Glucometer 139H Assessment/Plan Assessment S/P LTKR for painful DJD OSH Postop afib now controlled with meds Postop PE on Eliquis Postop Resp insuffiency on supplemental 02 DM controlled Possible ROSIBEL DR Barrera has seen today HTN controlled Hypokalemia Postop anemia Plan Continue PT/OT Team Conference later today-see report for full functional update and POC and ELOS F/u with DR ding and Holly and Ortho prn Wean from 02 as able if OK with DR Barrera. HIREN BURNETT MD Feb 28, 2017 10:03
--- NOTE | 2017-02-28 10:55 | Physical Therapy Daily Note ---
PT Daily Note-Current Subjective Pt. states her pain at rest is only 1/10, with Rx 3/10. States she has some discomfort with her right knee as well. Pain Numeric Pain Scale: 3 Location: Left Location Body Site: Knee Pain Description: Ache Mental Status Patient Orientation: Normal For Age Attachments: Oxygen (1L) Transfers Functional [place] Measure 0=Not Assessed/NA 4=Minimal Assistance 1=Total Assistance 5=Supervision or Setup 2=Maximal Assistance 6=Modified [place] 3=Moderate Assistance 7=Complete IndependenceIRFPAI Quality Coding Scale 6 Independent with activity with or without an assistive device 5 Patient requires set up or clean up by helper. Patient completes activity by themselves 4 Supervision or touching assist (CGA). [place] provide cues , steadying assist 3 The helper provides less than half the effort to complete the activity 2 The helper provides more than half the effort to complete the activity 1 Dependent. The helper does all the effort to complete an activity 7 Patient refused to complete or attempt activity 9 The patient did not perform the activity before the current illness or injury 88 Not attempted due to Medical conditions or safety concerns Transfers (B, C, W/C) (FIM): 6 Scootin Rollin Supine to/from Sit: 6 Sit to/from Stand: 6 Weight Bearing Right Lower Extremity: Right Full Weight Bearing Left Lower Extremity: Left Weight Bearing/Tolerated Gait Training Does the Patient Walk?: Yes Gait (FIM): 5 Distance (FIM): 3=150 ft (250x3) Gait Level of Assist: 5 Gait Persons Needed: 1 Gait Assistive Device: FWW pt. c/o dizziness this date. BP in sitting recorded at 94/62 and dizziness upon stance with BP at stance 90/58 but up again to 96/60 after 2 min standing Stair Training Stair Training: Handrails/: 2 handrails Stairs (FIM): 5 #of Steps: 4 Stairs: Pattern: Step to Level of Assist: 5 household exception Exercises Supine Ex: Ankle pumps, Quad Set, Rolling, Glut sets, Heel Slides, Short Arc Quads, Scooting, Straight leg raise, Hip abd/add Supine Reps: 15 Seated Therapy Exercises: Ankle pumps, Sit to stand, Long arc quads Seated Reps: 15 Treatments CPM 0-65, polar pack on as well Assessment Current Status: Excellent Progress O2 sats on 1 L O2 stayed above 90% however with attempts to titrate off O2 pts sats dropped to below 90% at 87% and 85%. gait and exercise therefore completed with O2 insitu PT Short Term Goals Short Term Goals Time Frame: Mar 06, 2017 Transfers (B,C,W/C) (FIM): 5 Gait (FIM): 5 Gait Distance Comment: 250' Gait Level of Assist: 5 Gait Assistive Device: FWW PT Chcf Goals Benzene Washer Operator Goals PT Benzene Washer Operator Goals Time Frame: Mar 20, 2017 Transfers (B,C,W/C) (FIM): 6 Sit to Lying (QC): 6 Lying-Sitting on Side/Bed(QC): 6 Sit to Stand (QC): 6 Rollin Roll Left to Right (QC): 6 Car Transfer (QC): 4 Gait (FIM): 6 Distance: 300' Walk 10 feet (QC): 6 Walk 10ft-Uneven Surface(QC): 6 Walk 50ft with 2 Turns (QC): 6 Walk 150 ft (QC): 6 Gait Assistive Device: FWW Stairs (FIM): 5 # of Steps: 12 1 Step (curb) (QC): 4 4 Steps (QC): 4 12 Steps (QC): 4 Stairs Level Of Assist: 5 PT Plan Treatment/Plan Treatment Plan: Continue Plan of Care Treatment Plan: Bed Mobility, Education, Functional Activity Dara, Functional Strength, Group Therapy, Gait, Safety, Therapeutic Exercise, Transfers Treatment Duration: Mar 20, 2017 Frequency: At least 5 of 7 days/Wk (IRF) Estimated Hrs Per Day: 1.5 hours per day Patient and/or Family Agrees t: Yes Safety Risks/Education Patient Education: Gait Training, Transfer Techniques, Steps, Correct Positioning, Disease Process, Safety Issues Teaching Recipient: Patient Teaching Methods: Demonstration, Discussion Response to Teaching: Verbalize Understanding, Return Demonstration, Reinforcement Needed Time/GCodes Time In: 930 Time Out: 1045 Total Billed Treatment Time: 75 Total Billed Treatment 1,EX45m,GT30m G Codes Necessary: JORGE Carpio MANAGER IMAGE Feb 28, 2017 10:54
--- NOTE | 2017-02-28 11:54 | Occupational Ther Daily Note ---
OT Current Status-Daily Note Subjective Pt in bed, agrees to treatment. Pt reports 3/10 pain in left knee. Mental Status/Objective Functional [place] Measure 0=Not Assessed/NA 4=Minimal Assistance 1=Total Assistance 5=Supervision or Setup 2=Maximal Assistance 6=Modified [place] 3=Moderate Assistance 7=Complete [place] Attachments: Oxygen (1L) ADL-Treatment Pt supine to sit using bed rail without assistance. Pt requests shower today. Sit to stand with SBA. Gait to restroom with FWW. Toilet transfer x2 during session with SBA using grab bars. Pt able to manage toileting hygiene and clothing management with SBA. Transfer to walk in shower with supervision and cues for safety. Pt doffed shirt and shorts with SBA. Able to doff right sock, requires min assist for left sock and assist for KIRSTIE hose. Seated bathing completed with SBA, uses long handled sponge to wash left lower leg and foot. Don bra and pullover shirt with set up. Pt donned underwear and shorts with SBA for balance during pant hike. Assist required to don KIRSTIE hose. Pt donned right sock without assistance, used sock aid to don left sock. Grooming tasks completed standing at sink. Pt brushed teeth and combed hair with modified independence. Increased time required during ADLs. Pt had one c/o mild dizziness during ADLs that subsided quickly with rest. O2 sat was 95%, BP 108/68 , HR 95. RN was notified of pt report. Pt states she thinks she just needs to get up earlier so she is more awake and ready for therapy. RN present during session to change dressing on left knee. Functional [place] Measure 0=Not Assessed/NA 4=Minimal Assistance 1=Total Assistance 5=Supervision or Setup 2=Maximal Assistance 6=Modified [place] 3=Moderate Assistance 7=Complete IndependenceIRFPAI Quality Coding Scale 6 Independent with activity with or without an assistive device 5 Patient requires set up or clean up by helper. Patient completes activity by themselves 4 Supervision or touching assist (CGA). [place] provide cues , steadying assist 3 The helper provides less than half the effort to complete the activity 2 The helper provides more than half the effort to complete the activity 1 Dependent. The helper does all the effort to complete an activity 7 Patient refused to complete or attempt activity 9 The patient did not perform the activity before the current illness or injury 88 Not attempted due to Medical conditions or safety concerns Grooming (FIM): 6 Oral Hygiene (QC): 6 Bathing (FIM): 5 Shower/Bathe Self (QC): 4 Upper Body (FIM): 5 Upper Body Dressing (QC): 5 Lower Body Dressing (FIM): 4 Lower Body Dressing (QC): 3 On/Off Footwear (QC): 3 Toileting (FIM): 5 Toilet/Commode Transfer (FIM): 5 Toilet Transfer (QC): 4 Shower Transfer(FIM): 5 Other Treatment Pt completed bilateral UE exercises to promote increased strength needed for ADLs and transfers. Pt performed shoulder flexion, abduction, biceps curls, and triceps extension exercises x20 reps with moderate resistance (red) theraband. Rest breaks taken between exercises. Pt sitting in chair with needs met after session. OT Short Term Goals Short Term Goals Time Frame: Mar 06, 2017 Bathing(FIM): 5 Transfers (B,C,W/C) (FIM): 5 Toilet/Commode Transfer(FIM): 5 1=Demonstrate adherence to instructed precautions during ADL tasks. 2=Patient will verbalize/demonstrate understanding of assistive devices/ modifications for ADL. 3=Patient will improve strength/tolerance for activity to enable patient to perform ADL's. OT Snf Goals Snf Goals Time Frame: Mar 20, 2017 Eating (FIM): 7 Eating (QC): 6 Groomin Oral Hygiene (QC): 6 Bathing(FIM): 6 Shower/Bathe Self (QC): 6 Upper Body Dressing(FIM): 6 Upper Body Dressing (QC): 6 Lower Body Dressing(FIM): 5 Lower Body Dressing (QC): 5 On/Off Footwear (QC): 6 Toileting(FIM): 6 Toileting Hygiene (QC): 6 Toilet/Commode Transfer(FIM): 6 Toilet/Commode Transfer (QC): 6 Shower Transfer(FIM): 6 Additional Goals: 2-Verbalize Understanding, 3-ImproveStrength/Dara 1=Demonstrate adherence to instructed precautions during ADL tasks. 2=Patient will verbalize/demonstrate understanding of assistive devices/ modifications for ADL. 3=Patient will improve strength/tolerance for activity to enable patient to perform ADL's. OT Education/Plan Discharge Recommendations Plan/Recommendations: Continue POC Treatment Plan/Plan of Care Patient would benefit from OT for education, treatment and training to promote independence in ADL's, mobility, safety and/or upper extremity function for ADL' s. Plan of Care: ADL Retraining, Functional Mobility, Group Exercise/Act as Ind, UE Funct Exercise/Act Treatment Duration: Mar 20, 2017 Frequency: At least 5 of 7 days/Wk (IRF) Estimated Hrs Per Day: 1.5 hours per day Agreement: Yes Rehab Potential: Good Time/GCodes Start Time: 08:00 Stop Time: 09:30 Total Time Billed (hr/min): 90 Billed Treatment Time 1 visit, ADLx5(70minutes), EX(20minutes) DASHA SHELTON OT Feb 28, 2017 11:54
--- NOTE | 2017-02-28 12:32 | Progress Note-Hospitalist ---
Progress Note HPI/CC on Admission CC: Medical management for new onset AF w/RVR and acute PE following left total knee replacement HPI: This is a 57yoWF clinic patient of OMAR Ferrell in [place], [place] and rarely sees Dr Dillard Cardiology for "fluttering" she experiences on occasion but "does not require any treatment for it" who presents to the IRU following slow recovery at [facility] in [place], [place] which included AF w/RVR on Sunday of which I managed conservatively with Lopressor 5mg IV x 3 doses 5 minutes before then maintained on PO Cardizem CD 120mg po daily but then did not ambulate well post- operatively and sustained an acute PE diagnosed on CT angiogram after suspicion from RN due to new oxygen requirement and tachycardia required the workup. She was placed on Lovenox 1mg/kg SQ at time of CT findings and then started on Eliquis which was started at 2100 last night. Currently she is doing well but did require O2 last night and feels really good. I talked to her about ROSIBEL and she suspects she has that condition but has never been tested and sometimes wakes up at night gasping for air. I spoke to Dr Barrera and he will see her in consultation. Progress Notes/Assess & Plan Date Seen 02/28/17 Time Seen by Provider: 11:20 Admission Dx/Process Assessment: Slow recovery following left total knee replacement per Dr Dang POD # [address] PE dx on CT angiogram 02/26/17 at [facility] following left total knee replacement and slow ambulation post operatively placed on lovenox one time dose 1mg/kg then started Eliquis 10mg PO BID for 7 days then 5mg PO BID New onset AF w/RVR documented on EKG and Tely on Sunday02/24/17 managed with Lopressor 5mg IV x 3 doses then placed on Cardizem and now on Cardizem and NSR currently DM High risk of ROSIBEL consulting Dr Barrera HTN Hypokalemia Post op anemia 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 Barrera has seen pt and ordered CXR Cardiology has not seen pt today No palpitations or tachycardia On Eliquis 10 twice daily and has Cardizem Patient Interview: Pt confirms that Dr. Barrera came when she was in the shower, but pt states he will come back to see her Pt was informed that she will be seen by cardiology Pt states her pain is doing well Physical exam stable. Lungs sound perfect Pt states she has SOB and has been feeling dizzy. Blood thinning was discussed AFVSS, Pleasant, improved, family at bedside RRR, CTAB no edema Left knee in CPM machine Assessment: Acute PE following slow recovery from left TKR POD # 5 s/p AF w/RVR post op day # 1 at [facility] managed with Lopressor IV 5mg x 3 doses then placed and maintained on Cardizem 120mg consulting Dr Mcdaniel to see Suspected ROSIBEL consulted Dr Barrera DM OA Chronic debility Post op constipation Plan: Consult Dr Barrera for suspected ROSIBEL Eliquis as ordered treatment for acute PE Cardizem to maintain NSR for AF w/RVR Appreciate Dr Mcdaniel's help PT/OT DC sliding scale Cardiology consult Stool softeners Scribed by Aziza Laguna under the direct supervision of Dr. Amato. TREY AMATO DO Feb 28, 2017 12:32
--- NOTE | 2017-02-28 14:12 | Diagnostic Imaging Report ---
INDICATION: Pulmonary emboli. COMPARISON: None. FINDINGS: Frontal and lateral views of the chest demonstrate normal heart size and pulmonary vascularity. The lungs are clear. There are no signs of infiltrate, pleural effusions or pneumothoraces. The visualized osseous structures show no acute abnormalities. IMPRESSION: 1. No acute process. No signs of infiltrates, effusions or pneumothoraces. Dictated by: Dictated on workstation # [id number]
--- NOTE | 2017-02-28 15:20 | Physical Therapy Daily Note ---
PT Daily Note-Current Subjective Pt. in bed upon arrival. Agrees to Rx. Pain Numeric Pain Scale: 0-No Pain Mental Status Patient Orientation: Normal For Age Attachments: Oxygen (L) Transfers Functional [place] Measure 0=Not Assessed/NA 4=Minimal Assistance 1=Total Assistance 5=Supervision or Setup 2=Maximal Assistance 6=Modified [place] 3=Moderate Assistance 7=Complete IndependenceIRFPAI Quality Coding Scale 6 Independent with activity with or without an assistive device 5 Patient requires set up or clean up by helper. Patient completes activity by themselves 4 Supervision or touching assist (CGA). [place] provide cues , steadying assist 3 The helper provides less than half the effort to complete the activity 2 The helper provides more than half the effort to complete the activity 1 Dependent. The helper does all the effort to complete an activity 7 Patient refused to complete or attempt activity 9 The patient did not perform the activity before the current illness or injury 88 Not attempted due to Medical conditions or safety concerns All TRFs Mod I Weight Bearing Right Lower Extremity: Right Full Weight Bearing Left Lower Extremity: Left Weight Bearing/Tolerated Gait Training Does the Patient Walk?: Yes Gait Assistive Device: FWW 200x2 SBA to Mod I, assist for portable O2 only Exercises Supine Ex: Ankle pumps, Quad Set, Rolling, Heel Slides, Straight leg raise Supine Reps: 12 NuStep Minutes: 12 NuStep Workload: 3 Assessment Current Status: Good Progress PT Short Term Goals Short Term Goals Time Frame: Mar 06, 2017 Transfers (B,C,W/C) (FIM): 5 Gait (FIM): 5 Gait Distance Comment: 250' Gait Level of Assist: 5 Gait Assistive Device: FWW PT Raw Stock Machine Loader Goals Mcc Goals PT Mcc Goals Time Frame: Mar 20, 2017 Transfers (B,C,W/C) (FIM): 6 Sit to Lying (QC): 6 Lying-Sitting on Side/Bed(QC): 6 Sit to Stand (QC): 6 Rollin Roll Left to Right (QC): 6 Car Transfer (QC): 4 Gait (FIM): 6 Distance: 300' Walk 10 feet (QC): 6 Walk 10ft-Uneven Surface(QC): 6 Walk 50ft with 2 Turns (QC): 6 Walk 150 ft (QC): 6 Gait Assistive Device: FWW Stairs (FIM): 5 # of Steps: 12 1 Step (curb) (QC): 4 4 Steps (QC): 4 12 Steps (QC): 4 Stairs Level Of Assist: 5 PT Plan Treatment/Plan Treatment Plan: Continue Plan of Care Treatment Plan: Bed Mobility, Education, Functional Activity Dara, Functional Strength, Group Therapy, Gait, Safety, Therapeutic Exercise, Transfers Treatment Duration: Mar 20, 2017 Frequency: At least 5 of 7 days/Wk (IRF) Estimated Hrs Per Day: 1.5 hours per day Patient and/or Family Agrees t: Yes Time/GCodes Time In: 1430 Time Out: 1500 Total Billed Treatment Time: 30 Total Billed Treatment 1,FA15m,EX15m G Codes Necessary: JORGE Carpio DIE WELDER Feb 28, 2017 15:20
--- NOTE | 2017-02-28 15:22 | Consultation-Cardiology ---
HPI-Cardiology Cardiology Consultation: Date of Consultation 02/28/17 Date of Admission Attending Physician Cj Zuñiga MD Admitting Physician No,Local Physician Consulting Physician Lizz MCDANIEL MD HPI: Time Seen by Provider: 15:19 Chief Complaint: Shortness of breath This is a 57-year-old lady with history of palpitations in the past, but no specific diagnosis. She had a recent knee replacement. She developed atrial fibrillation with rapid ventricular rate as well as pulmonary embolism. She is transferred here for further management and inpatient rehabilitation. She complains of mild shortness of breath however denies any significant palpitations. She also denies any significant chest pain, syncope or near syncope. Review of Systems-Cardiology Review of Systems Constitutional: No As described under HPI, No no symptoms reported, No chills, No fever, No lightheadedness, No malaise, No tiredness, No weight loss, No weight gain, No other Eyes: No As described under HPI, No no symptoms reported, No blindness, No blurred vision, No contact lenses, No drainage, No decreased acuity, No foreign body sensation, No glasses, No inflammation, No pain, No photophobia, No previous injury, No shadows, No tunnel vision, No other, No vision change Ears/Nose/Throat: No As described under HPI, No no symptoms reported, No chronic hearing loss, No epistaxis, No ear discharge, No ear pain, No loose teeth, No mouth pain, No mouth swelling, No nasal drainage, No nose pain, No recent hearing loss, No throat pain, No throat swelling, No ulcerations, No other Respiratory: shortness of breath Cardiovascular: No no symptoms reported, No As described under HPI, No chest pain, No edema, No irregular heart rate, No lightheadedness, No palpitations, No syncope, No other Gastrointestinal: No no symptoms reported, No As described under HPI, No abdomen distended, No abdominal pain, No blood streaked bowels, No constipation , No diarrhea, No difficulty swallowing, No nausea, No poor appetite, No poor fluid intake, No rectal bleeding, No vomiting, No other, No nausea/vomiting/ diarrhea, No stool coloration changes Genitourinary: No no symptoms reported, No As described under HPI, No burning, No dysuria, No discharge, No frequency, No flank pain, No hematuria, No incontinence, No pain, No urgency, No other, No urine frequency changes, No urine coloration changes Musculoskeletal: No no symptoms reported, No As describe under HPI, No back pain, No gout, joint pain, No joint swelling, No muscle pain, No muscle stiffness, No neck pain, No other Skin: No no symptoms reported, No As described under HPI, No change in color, No change in hair/nails, No dryness, No lesions, No lumps, No rash, No other, No skin related problems, No ulcerations, No rash on exposed areas, No ulcerations on exposed areas Psychiatric/Neurological: No no symptoms reported, No As described under HPI, No anxiety, No depression, No emotional problems, No headache, No numbness, No pre-existing deficit, No seizure, No tingling, No tremors, No weakness, No other , No focal weakness, No syncope Hematologic: No no symptoms reported, No As described under HPI, No anemia, No blood clots, No easy bleeding, No easy bruising, No swollen glands, No other, No bleeding abnormalities All Other Systems Reviewed Negative Unless Noted: Yes QPO-Vcibut-Dgpumm Hx Patient Social History Marrital Status: single Employed/Student: employed Alcohol Use: Denies Use Recreational Drug Use: No Smoking Status: Never a Smoker Recent Foreign Travel: No Recent Infectious Disease Expo: No Hospitalization with Isolation: Denies Physical Abuse Screen: No Sexual Abuse: No Past Medical History PMH As described under Assessment. Family Medical History Family History: Cervical cancer DAUGHTERS FH: breast cancer 19 MOTHER FH: skin cancer DAUGHTERS DAUGHTERS Allergies and Home Medications Allergies Coded Allergies: No Known Allergies (Verified Allergy, Unknown, 02/26/17) Home Medications Apixaban 5 Mg Tablet, 10 MG PO BID, #14 (Reported) 2 TABLETS TWICE DAILY X 7 DAYS Apixaban 5 Mg Tablet, 5 MG PO BID, (Reported) TO START AFTER ELIQUIS 10 MG BID X 7 DAYS Aspirin 81 Mg Tablet.dr, 81 MG PO BID, (Reported) Diclofenac Potassium 50 Mg Tablet, 50 MG PO TID, (Reported) Diltiazem HCl 120 Mg Cap.er.24h, 120 MG PO DAILY, (Reported) Gabapentin 300 Mg Capsule, 300 MG PO TID, (Reported) Hydrochlorothiazide 12.5 Mg Capsule, 12.5 MG PO DAILY, (Reported) Hydrocodone/Acetaminophen 1 Each Tablet, 2 TAB PO Q4H PRN for PAIN-MODERATE, ( Reported) Lisinopril 40 Mg Tablet, 40 MG PO DAILY, (Reported) Metformin HCl 1,000 Mg Tablet, 1,000 MG PO BID, (Reported) Pediatric Multivit Comb No.76 1 Each Tab.chew, 1 TAB PO DAILY, (Reported) Potassium 99 Mg Tablet, 99 MG PO DAILY, (Reported) Physical Exam-Cardiology Physical Exam Vital Signs/I&O Vital Sign - Last 12Hours 02/28/17 02/28/17 05:07 09:58 Temp 98.5 Pulse 84 Resp 18 B/P (MAP) 114/74 Pulse Ox 96 O2 Delivery Nasal Cannula Nasal Cannula O2 Flow Rate 2.00 2.00 Capillary Refill : Constitutional: No appears stated age, No AAO x 3, No apparent distress, No PERRL, No well-developed, No well-nourished, No other HEENT: No PERRL, No normal ENT inspection, No TMs normal, No pharynx normal, No scleral icterus (R), No scleral icterus (L), No pale conjunctivae (R), No pale conjunctivae (L), No photophobia, No TM abnormal (R), No TM abnormal (L), No pharyngeal erythema, No tonsillar exudate, No other, No discharge, No EOMI, No hearing is well preserved, No hard of hearing, No oral hygience is good, No ulceration, No xanthelasmas are seen Neck: No non-tender, No full range of motion, No supple, No normal inspection, No carotid bruit, No limited range of motion, No lymphadenopathy (R), No lymphadenopathy (L), No tender lateral, No tender midline, No thyromegaly, No other, No carotid pulses are 2 + bilaterally, No with good upstrokes Respiratory: No accessory muscle use, No respiratory distress, No chest tender , No chest expansion is symmetric, No chest is bilaterally symmetric, No lungs clear to percussion, No lungs clear to auscultation, No crackles, No rhonchi, No rales, No stridor, No wheezing, No pleural rub, No other Cardiovascular: regular rate-rhythm, S1 and S2 Gastrointestinal: No tender, No soft, No round, No distended, No pulsatile mass , No organomegaly, No guarding, No rebound, No tenderness, No hernia, No mass, No audible bowel sounds, No abnormal bowel sounds, No abdominal bruits, No spleenomegaly, No other Rectal: deferred Extremities: No normal range of motion, No non-tender, No normal inspection, No pedal edema, No calf tenderness, No normal capillary refill, No pelvis stable , No calf tenderness, No inflammation, No pedal edema, No slow capillary refill , No swelling, No other, No abrasion, No clubbing, No cyanosis, No ecchymosis, No laceration, No no lower extremity edema bilateral, No significant edema, No tenderness, No wound Neurologic/Psychiatric: No adjustment clerk II-XII nml as tested, No no motor/sensory deficits, No alert, No normal mood/affect, No oriented x 3, No abnormal cerebellar tests, No abnormal adjustment clerk II-XII, No abnormal gait, No aphasia, No EOM palsy, No facial droop, No motor weakness, No sensory deficit, No depressed affect, No disoriented x 3, No other, No grossly intact, No power is 5/5 both on sides Skin: No normal color, No warm/dry, No cyanosis, No cool, No diaphoresis, No damp, No ecchymosis, No jaundice, No mottled, No pallor, No rash, No tattoos/ piercings, No ulcerations, No rash on exposed areas, No ulcerations on exposed areas, No other Data Review Labs Laboratory Tests 02/27/17 16:01: Glucometer 152H 02/27/17 20:09: Glucometer 235H 02/28/17 05:32: Glucometer 139H 02/28/17 10:50: Glucometer 128H ECG Impression ECG Comment None available A/P-Cardiology Assessment/Admission Diagnosis Shortness of breath, atrial fibrillation with rapid ventricular rate, pulmonary embolism Plan Continue high-dose Eliquis for pulmonary embolism. Oxygen saturation on 2 L is reasonable. Continue Cardizem for atrial fibrillation. Pulse seems to be regular. I will request an EKG and telemetry. Her shortness of breath evaluation I'll recommend an echocardiogram. I discussed briefly with the patient and family about atrial fibrillation and possible future management. Thank you for your consultation. Please call me if you have any questions. Afsaneh Mcdaniel MD, FACP, FACC, FSCAI, FHRS, CCDS Interventional Cardiology Cardiac Electrophysiology Vascular Medicine and Endovascular Interventions Clinical Quality Measures DVT/VTE Risk/Contraindication: Risk Factor Score Per Nursin RFS Level Per Nursing on Admit: 3=High Lizz MCDANIEL MD Feb 28, 2017 3:22 pm
[2017-02-28 18:03] VITALS: BP 117/71
[2017-03-01] MEDS: HYDROcodone/APAP 10 MG/325 MG (LORTAB) TAB PO PRN ×3 (04:37→20:21)
[2017-03-01 05:31] VITALS: BP 118/75
[2017-03-01] MEDS: metFORMIN 500 MG (GLUCOPHAGE) TAB PO SCH (06:33)
[2017-03-01] MEDS: MULTIVIT W/MINERALS TAB (THERAGRAN M) PO SCH (06:33)
[2017-03-01] MEDS: DICLOFENAC POTASSIUM 50 MG PO SCH ×3 (06:33→17:58)
[2017-03-01 08:30] VITALS: BP 114/66
[2017-03-01] MEDS: GABAPENTIN 300 MG (NEURONTIN) CAP PO SCH ×3 (08:35→20:21)
[2017-03-01] MEDS: DILTIAZEM 120 MG (CARDIZEM CD) CAP PO SCH (08:35)
[2017-03-01] MEDS: HYDROCHLOROTHIAZIDE 12.5 MG (HCTZ) CAP PO SCH (08:35)
[2017-03-01] MEDS: ASPIRIN E.C. 81 MG (ECOTRIN) TAB PO SCH ×2 (08:35→20:21)
[2017-03-01] MEDS: lisINopril 20 MG (ZESTRIL) TAB PO SCH (08:36)
[2017-03-01] MEDS: APIXABAN 5 MG (ELIQUIS) TABLET PO SCH ×2 (08:36→20:21)
--- NOTE | 2017-03-01 10:43 | Occupational Ther Daily Note ---
OT Current Status-Daily Note Subjective No pain reported. Pt. states that she is leaving tomorrow. She states that she is ready to go home. Appearance Pt. is in bed. Agrees to work with therapy. Mental Status/Objective Patient Orientation: Person, Place, Time, Situation Functional [place] Measure 0=Not Assessed/NA 4=Minimal Assistance 1=Total Assistance 5=Supervision or Setup 2=Maximal Assistance 6=Modified [place] 3=Moderate Assistance 7=Complete [place] Attachments: IV, Oxygen ADL-Treatment Functional [place] Measure 0=Not Assessed/NA 4=Minimal Assistance 1=Total Assistance 5=Supervision or Setup 2=Maximal Assistance 6=Modified [place] 3=Moderate Assistance 7=Complete IndependenceIRFPAI Quality Coding Scale 6 Independent with activity with or without an assistive device 5 Patient requires set up or clean up by helper. Patient completes activity by themselves 4 Supervision or touching assist (CGA). [place] provide cues , steadying assist 3 The helper provides less than half the effort to complete the activity 2 The helper provides more than half the effort to complete the activity 1 Dependent. The helper does all the effort to complete an activity 7 Patient refused to complete or attempt activity 9 The patient did not perform the activity before the current illness or injury 88 Not attempted due to Medical conditions or safety concerns Grooming (FIM): 6 (Pt. brushes her hair and teeth while standing at sink with walker. Pt. is Mod I with this task.) Oral Hygiene (QC): 6 Bathing (FIM): 6 (Pt. is Mod I in shower using grab bars and shower bench.) Shower/Bathe Self (QC): 6 Upper Body (FIM): 6 Upper Body Dressing (QC): 6 Lower Body Dressing (FIM): 6 Lower Body Dressing (QC): 6 On/Off Footwear (QC): 6 Toileting (FIM): 6 Toileting Hygiene (QC): 6 Transfers (B, C, W/C) (FIM): 6 Toilet/Commode Transfer (FIM): 6 Toilet Transfer (QC): 6 Shower Transfer(FIM): 6 Other Treatment Pt. was able to transfer into shower, and shower all parts with Mod I. Pt. is able to dress and undress self with Mod I using sock aide and dressing stick. Pt. is able to stand at sink and brush teeth/hair with Mod I using walker for support. Pt. states that she is ready to go home. All needs met in room after shower. Education OT Patient Education: Correct positioning, Modified ADL techniques, Progress toward Goal/Update tx plan, Purpose of tx/functional activities, Reviewed precautions, Rehab process, Transfer techniques, Use of adapted equipment Teaching Recipient: Patient Teaching Methods: Demonstration, Discussion Response to Teaching: Verbalize Understanding, Return Demonstration OT Short Term Goals Short Term Goals Time Frame: Mar 06, 2017 Bathing(FIM): 5 Transfers (B,C,W/C) (FIM): 5 Toilet/Commode Transfer(FIM): 5 1=Demonstrate adherence to instructed precautions during ADL tasks. 2=Patient will verbalize/demonstrate understanding of assistive devices/ modifications for ADL. 3=Patient will improve strength/tolerance for activity to enable patient to perform ADL's. OT Fpc Goals Relay Worker Goals Time Frame: Mar 20, 2017 Eating (FIM): 7 Eating (QC): 6 Groomin Oral Hygiene (QC): 6 Bathing(FIM): 6 Shower/Bathe Self (QC): 6 Upper Body Dressing(FIM): 6 Upper Body Dressing (QC): 6 Lower Body Dressing(FIM): 5 Lower Body Dressing (QC): 5 On/Off Footwear (QC): 6 Toileting(FIM): 6 Toileting Hygiene (QC): 6 Toilet/Commode Transfer(FIM): 6 Toilet/Commode Transfer (QC): 6 Shower Transfer(FIM): 6 Additional Goals: 2-Verbalize Understanding, 3-ImproveStrength/Dara 1=Demonstrate adherence to instructed precautions during ADL tasks. 2=Patient will verbalize/demonstrate understanding of assistive devices/ modifications for ADL. 3=Patient will improve strength/tolerance for activity to enable patient to perform ADL's. OT Education/Plan Discharge Recommendations Plan/Recommendations: Continue POC Therapy D/C Recommendations: Home w/ Family Support Equpiment Recommendations-D/C: Hip Kit Target Placement Home with family support. Treatment Plan/Plan of Care Treatment,Training & Education: Yes Patient would benefit from OT for education, treatment and training to promote independence in ADL's, mobility, safety and/or upper extremity function for ADL' s. Plan of Care: ADL Retraining, Functional Mobility, Group Exercise/Act as Ind, UE Funct Exercise/Act Treatment Duration: Mar 20, 2017 Frequency: At least 5 of 7 days/Wk (IRF) Estimated Hrs Per Day: 1.5 hours per day Agreement: Yes Rehab Potential: Good Time/GCodes Start Time: 09:30 Stop Time: 10:30 Total Time Billed (hr/min): 60 Billed Treatment Time 1, ADL x 4 BELLE HOPPER OT Mar 01, 2017 10:43
--- NOTE | 2017-03-01 11:54 | Physical Therapy Daily Note ---
PT Daily Note-Current Subjective Patient in recliner pre tx, agrees to PT, has pain of 3/10 in left knee. Appearance Patient in recliner post tx with nurse call, phone, tray, all needs met. Mental Status Patient Orientation: Normal For Age Attachments: Oxygen 1L of O2 nasal canula Transfers Functional [place] Measure 0=Not Assessed/NA 4=Minimal Assistance 1=Total Assistance 5=Supervision or Setup 2=Maximal Assistance 6=Modified [place] 3=Moderate Assistance 7=Complete IndependenceIRFPAI Quality Coding Scale 6 Independent with activity with or without an assistive device 5 Patient requires set up or clean up by helper. Patient completes activity by themselves 4 Supervision or touching assist (CGA). [place] provide cues , steadying assist 3 The helper provides less than half the effort to complete the activity 2 The helper provides more than half the effort to complete the activity 1 Dependent. The helper does all the effort to complete an activity 7 Patient refused to complete or attempt activity 9 The patient did not perform the activity before the current illness or injury 88 Not attempted due to Medical conditions or safety concerns Transfers (B, C, W/C) (FIM): 6 Scootin Rollin Roll Left to Right (QC): 6 Supine to/from Sit: 6 Sit to/from Stand: 6 Sit to Lying (QC): 6 Sit to Stand (QC): 6 Chair/Oxt-ev-Ckzqp Xfer(QC): 6 Car Transfer (QC): 5 Patient performs bed mobility with mod I, transfers with mod I, and performs a car transfer with SBA. Weight Bearing Right Lower Extremity: Right Full Weight Bearing Left Lower Extremity: Left Weight Bearing/Tolerated Gait Training Gait (FIM): 6 Distance: 200'x2 Walk 10 feet (QC): 6 Walk 50 ft with 2 Turns(QC): 6 Walk 150 ft (QC): 6 Walking 10ft/uneven surface-QC: 4 (SBA) Gait Persons Needed: 1 Gait Assistive Device: FWW Patient ambulates 200' with a rolling walker with mod I, including 50' with at least 2 turns of 90 degrees but 10' over an uneven surface with SBA. Gait is slow and antalgic, slightly flexed left knee. Wheelchair Training Does the Pt Use a Wheelchair?: No Stair Training Stair Training: Handrails/: 2 handrails Stairs (FIM): 4 #of Steps: 12 1 Step (curb) (QC): 4 4 Steps (QC): 4 12 Steps (QC): 4 Level of Assist: 4 Patient can go up and down 12 steps using 2 handrails with CGA. Cues for safety and foot placement. Balance Picking up an Object (QC): 4 (CGA) Exercises Supine Ex: Ankle pumps, Quad Set, Heel Slides, Short Arc Quads, Straight leg raise, Hip abd/add Supine Reps: 20 NuStep Minutes: 15 NuStep Workload: 5 Treatments bed mobility and transfers, ambulation, stair training, gait training, functional strengthening and ROM Assessment Current Status: Fair Progress Patient has 100 degrees and flexion and +2 degrees of extension on the left knee. Endurance and strength are improving. PT Short Term Goals Short Term Goals Time Frame: Mar 06, 2017 Transfers (B,C,W/C) (FIM): 5 Gait (FIM): 5 Gait Distance Comment: 250' Gait Level of Assist: 5 Gait Assistive Device: FWW PT Usp Goals Usp Goals PT Robotic Technician Goals Time Frame: Mar 20, 2017 Transfers (B,C,W/C) (FIM): 6 (met) Sit to Lying (QC): 6 (met) Lying-Sitting on Side/Bed(QC): 6 (met) Sit to Stand (QC): 6 (met) Rollin (met) Roll Left to Right (QC): 6 (met) Car Transfer (QC): 4 (met) Gait (FIM): 6 Distance: 300' Walk 10 feet (QC): 6 (met) Walk 10ft-Uneven Surface(QC): 6 Walk 50ft with 2 Turns (QC): 6 (met) Walk 150 ft (QC): 6 (met) Gait Assistive Device: FWW Stairs (FIM): 5 # of Steps: 12 1 Step (curb) (QC): 4 4 Steps (QC): 4 12 Steps (QC): 4 Stairs Level Of Assist: 5 PT Plan Problem List Problem List: Activity Tolerance, Functional Strength, Safety, Balance, Gait, Transfer, Bed Mobility, ROM Treatment/Plan Treatment Plan: Continue Plan of Care Treatment Plan: Bed Mobility, Education, Functional Activity Dara, Functional Strength, Group Therapy, Gait, Safety, Therapeutic Exercise, Transfers Treatment Duration: Mar 20, 2017 Frequency: At least 5 of 7 days/Wk (IRF) Estimated Hrs Per Day: 1.5 hours per day Patient and/or Family Agrees t: Yes Safety Risks/Education Patient Education: Gait Training, Transfer Techniques, Steps, Correct Positioning, Safety Issues Teaching Recipient: Patient Teaching Methods: Demonstration, Discussion Response to Teaching: Reinforcement Needed Time/GCodes Time In: 1100 Time Out: 1200 Total Billed Treatment Time: 60 Total Billed Treatment 1 visit EX 30' GT 20' FA 10' EVON JUSTIN PT Mar 01, 2017 11:54
--- NOTE | 2017-03-01 12:20 | PM & R (SOAP) Progress Note ---
Subjective Time Seen by Provider: 11:45 Subjective/Events-last exam Patient was seen in her room this AM Appreciate DR Waddell note and orders.Patient min assist for transfers Objective Exam Last Set of Vital Signs Vital Signs Date Time Temp Pulse Resp B/P (MAP) Pulse Ox O2 Delivery O2 Flow Rate FiO2 03/01/17 08:30 98.8 81 18 114/66 98 Nasal Cannula 1.00 Capillary Refill : I&O Intake and Output 03/02/17 00:00 Intake Total 200 ml Balance 200 ml Intake Oral 200 ml # Voids 2 General: Alert, Oriented X3, Cooperative, No Acute Distress HEENT: Atraumatic, PERRLA, EOMI, Mucous Memb Moist/[place], Other (02 by N/C in place) Neck: Supple, No JVD Lungs: Clear to Auscultation Heart: Regular Rate Abdomen: Normal Bowel Sounds, Soft, No Tenderness Extremities: Other ([place] dressing left knee) Neuro: Other (Limited AROM of left knee otherwise functional strength) Results Lab Laboratory Tests 02/26/17 20:22: Glucometer 187H 02/27/17 05:51: Glucometer 134H 02/27/17 10:56: Glucometer 151H 02/27/17 16:01: Glucometer 152H 02/27/17 20:09: Glucometer 235H 02/28/17 05:32: Glucometer 139H 02/28/17 10:50: Glucometer 128H 03/01/17 04:54: Glucometer 110 Assessment/Plan Assessment S/P LTKR for painful DJD OSH Postop afib now controlled with meds Postop PE on Eliquis Postop Resp insuffiency on supplemental 02 DM controlled Possible ROSIBEL DR Barrera has seen today HTN controlled Hypokalemia Postop anemia Plan Continue PT/OT Team Conference held yesterday--see report for full functional update and POC and ELOS F/u with DR ding and Holly and Ortho prn Wean from 02 as able if OK with DR Barrera. HIREN BURNETT MD Mar 01, 2017 12:20
--- NOTE | 2017-03-01 13:58 | Individualized Plan of Care ---
Individualized Plan of Care Rehab Nursing IPOC Order Admission Date Feb 26, 2017 at 17:25 Current Orders Orders Admission (Physician Order) (02/26/17 17:35) Code/Resuscitation (02/26/17 17:35) Initiate Admission Nursing Pro .admission (02/26/17 17:35) Isolation Central Supply Req (02/26/17 17:35) Admission Arrival Bed Request (02/26/17 17:35) Cho 60g/M 1snack (16-2000 Vazquez) (02/26/17 Dinner) Occupational Therapy Rehab Ord (02/26/17 17:39) Physical Therapy Rehab Orders (02/26/17 17:39) Request For Cognitive Services (02/26/17 17:39) Rehab Nursing Orders-Ipoc (02/26/17 17:39) Consult Physician (02/26/17 17:39) Therapeutic Multivitamin Tab (Vitamins, (02/27/17 07:00) Hydrochlorothiazide Cap/Tablet (Hctz Cap (02/27/17 09:00) Gabapentin Capsule/Tablet (Neurontin Cap (02/26/17 21:00) Metformin Tablet (Glucophage Tablet) (03/02/17 07:00) Insulin Aspart (Novolog) (Novolog (Charg (02/26/17 21:00) Pharmacy Communication (Pharmacy Communi (02/26/17 17:45) Pharmacy Communication (Pharmacy Communi (02/26/17 17:45) Lisinopril Tablet (Zestril Tablet) (02/27/17 09:00) Hydrocodone/Apap 10/325 Tablet (Lortab 1 (02/26/17 17:45) Apixaban Tablet (Eliquis Tablet) (02/26/17 21:00) Diltiazem Cd 24 Hr Capsule (Cardizem Cd (02/27/17 09:00) Weight Bearing Status (02/26/17 17:44) Darnell Cisneros (02/26/17 17:44) Ice: Apply To Affected Area (02/26/17 17:44) 24 Hour Oxygen Rt-Rfs (02/26/17 17:44) Follow-Up Appointment (02/26/17 17:44) Advanced Wound Care Dressing O DAILY (02/27/17 09:00) Aspirin Enteric Coated Tablet (Ecotrin T (02/26/17 21:00) Incentive Spirometryrt Initial (02/26/17 17:44) Incentive Spirometry (Nursing) Q2H (02/26/17 17:44) Apixaban Tablet (Eliquis Tablet) (03/05/17 21:00) Ambulate TID (02/26/17 20:00) Sequential Compression Device 08,20 (02/26/17 20:00) Dvt/Vte Risk - Notifiy Physici (02/26/17 20:00) Influenza Vac Order Indicated (02/26/17 20:00) Influenza Trivalent [id number] (Afluria (02/27/17 07:30) Patient's Own Med(Rx Use Only) (Patient' (02/27/17 12:00) Consult Physician (02/27/17 09:30) Apixaban Tablet (Eliquis Tablet) (02/27/17 21:00) Apixaban Tablet (Eliquis Tablet) (02/27/17 21:00) Aspirin Enteric Coated Tablet (Ecotrin T (02/27/17 21:00) Diltiazem Cd 24 Hr Capsule (Cardizem Cd (02/28/17 09:00) Gabapentin Capsule/Tablet (Neurontin Cap (02/27/17 13:00) Hydrochlorothiazide Cap/Tablet (Hctz Cap (02/28/17 09:00) Hydrocodone/Apap 10/325 Tablet (Lortab 1 (02/27/17 09:30) Lisinopril Tablet (Zestril Tablet) (02/28/17 09:00) Metformin Tablet (Glucophage Tablet) (02/28/17 07:00) Patient Visit (02/27/17 ) Speech Sound Lang Comp (02/27/17 ) Patient Visit (02/27/17 ) Pt Eval Low Complexity (02/27/17 ) Functional Activities, Ea 15 (02/27/17 ) Gait Training, Ea 15 Min (02/27/17 ) Exercise Therap, Ea 15 Min (02/27/17 ) Chest Pa/Lat (2 View) (02/28/17 08:21) Cpm: Initial Session (02/27/17 ) Cpm Pads (02/27/17 ) Nursing Communication (Patient (02/28/17 10:29) Consult Physician (02/28/17 11:07) Accucheck Daily@0600 DAILY@0600 (02/28/17 11:19) Echo W Doppler/Color Flow (02/28/17 15:13) Telemetry (02/28/17 15:13) Ekg Tracing (02/28/17 15:13) Patient Visit (02/28/17 ) Exercise Therap, Ea 15 Min (02/28/17 ) Gait Training, Ea 15 Min (02/28/17 ) Functional Activities, Ea 15 (02/28/17 ) Rt Communication (03/01/17 13:12) Rehab Nursing Orders: Bladder Program, Bladder Scan, Bladder Training, Bowel Program, Bowel Training, Diseage Management, Edu in Press Rel Techn, Hydration Management, Nutrition Management, Pain Management, Wound Management Other Nursing Orders: Monitor for postop urinary retention and treat postop constipation Intensity of Therapy to be met Patient to be seen: 15 hrs over 7 cons. days PT IPOC Problem List: Activity Tolerance, Functional Strength, Safety, Balance, Gait, Transfer, Bed Mobility, ROM Treatment Plan: Continue Plan of Care Bed Mobility, Education, Functional Activity Dara, Functional Strength, Group Therapy, Gait, Safety, Therapeutic Exercise, Transfers Treatment Duration: Mar 20, 2017 Frequency: At least 5 of 7 days/Wk (IRF) Estimated Hrs Per Day: 1.5 hours per day OT IPOC Problems: Decreased Activ Tolerance, Decreased UE Strength, Dependent Transfers , Impaired Self-Care Skills OT Treatment, Training and Edu: Yes Plan of Care: ADL Retraining, Functional Mobility, Group Exercise/Act as Ind, UE Funct Exercise/Act Treatment Duration: Mar 20, 2017 Frequency: At least 5 of 7 days/Wk (IRF) Estimated Hrs Per Day: 1.[address] IPOC Speech Therapy Treatment Plan: Discontinue ST Treatment Duration: Mar 01, 2017 Frequency: Modified Program (IRF) (Evaluation, only.) Estimated Hrs Per Day: Other (Evaluation, only.) Plant Packer/Case Mgmt Plant Packer/Case Managemen: Discharge Planning, Patient/Family Counseling Physician IPOC Medical Issues being managed closely and that require the 24 hour availability of a physician:post-op PE,Post op A FIB 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 Probable ROSIBEL seen by DR Barrera Cardiology eval for postop afib Medical Issues: Bowel/Bladder Function, DVT Prophylaxis, Falls Precautions, Infection Protection, Pain Management, Wound Care, Other (List) (as per above) Brief Synthesis of Preadmission Screen, Post-Admission Evaluation, and Therapy Evaluations:57 yo female who had been Independent who had left TKR at OSH with postop complications of PULM Embolism placed on eliquis as well as A FIB controlled with Meds 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 HIREN BURNETT MD Mar 01, 2017 13:58
--- NOTE | 2017-03-01 14:53 | Therapy Group Daily Note ---
Therapy Daily Group Note Patient Education Topic Home Safety, Fall Prevention, Exercises Exercises LE Seated Exercise, UE Exercise Other/Notes Pt walked to gym with FWW and CGA and participated in group therapy. Pt participated in introductions of name, name of place of residence, and the worst fall or accident. Pt able to return demonstration of seated LE and UE exercises. Discussed in group was what ARU is and does as well as the expectations of pts in the ARU. Pt also participated in brain teasers and learned about home safety in anticipation of going home. Pt walked back to room with FWW and CGA and left in bed with all needs met. Start Time: 13:00 Stop Time: 14:00 Total Billed Treatment Time: 60 Total Billed Treatment 1, GRP (60 minutes) ROSALINO RAMOS Mar 01, 2017 14:53
--- NOTE | 2017-03-01 16:09 | Cardiology Progress Note ---
Cardiology SOAP Progress Note Objective: I&O/Vital Signs Vital Sign - Last 12Hours 03/01/17 03/01/17 03/01/17 03/01/17 05:31 07:32 07:52 08:23 Temp 99.2 Pulse 79 66 Resp 18 B/P (MAP) 118/75 Pulse Ox 91 O2 Delivery Nasal Cannula Nasal Cannula O2 Flow Rate 1.00 1.00 2.00 03/01/17 03/01/17 03/01/17 08:30 13:20 14:44 Temp 98.8 Pulse 81 71 Resp 18 B/P (MAP) 114/66 Pulse Ox 98 94 O2 Delivery Nasal Cannula O2 Flow Rate 1.00 1.00 Weight (Pounds): 206 Weight (Ounces): 1.6 Weight (Calculated Kilograms): 93.392038 Constitutional: No appears stated age, No AAO x 3, No apparent distress, No PERRL, No well-developed, No well-nourished, No other Respiratory: No accessory muscle use, No respiratory distress, No chest tender , No chest expansion is symmetric, No chest is bilaterally symmetric, No lungs clear to percussion, No lungs clear to auscultation, No crackles, No rhonchi, No rales, No stridor, No wheezing, No pleural rub, No other Cardiovascular: regular rate-rhythm, S1 and S2 Gastrointestional: No tender, No soft, No round, No distended, No pulsatile mass, No organomegaly, No guarding, No rebound, No tenderness, No hernia, No mass, No audible bowel sounds, No abnormal bowel sounds, No abdominal bruits, No spleenomegaly, No other Extremities: No normal range of motion, No non-tender, No normal inspection, No pedal edema, No calf tenderness, No normal capillary refill, No pelvis stable , No calf tenderness, No inflammation, No pedal edema, No slow capillary refill , No swelling, No other, No abrasion, No clubbing, No cyanosis, No ecchymosis, No laceration, No no lower extremity edema bilateral, No significant edema, No tenderness, No wound Neurologic/Psychiatric: No leather production worker II-XII nml as tested, No no motor/sensory deficits, No alert, No normal mood/affect, No oriented x 3, No abnormal cerebellar tests, No abnormal leather production worker II-XII, No abnormal gait, No aphasia, No EOM palsy, No facial droop, No motor weakness, No sensory deficit, No depressed affect, No disoriented x 3, No other, No grossly intact, No power is 5/5 both on sides Skin: No normal color, No warm/dry, No cyanosis, No cool, No diaphoresis, No damp, No ecchymosis, No jaundice, No mottled, No pallor, No rash, No tattoos/ piercings, No ulcerations, No rash on exposed areas, No ulcerations on exposed areas, No other Results/Procedures: Labs Laboratory Tests 03/01/17 04:54: Glucometer 110 A/P: Assessment/Dx: Shortness of breath, atrial fibrillation with rapid ventricular rate, pulmonary embolism Plan: Continue high-dose Eliquis for pulmonary embolism. Oxygen saturation on 2 L is reasonable. Continue Cardizem for atrial fibrillation. EKG and telemetry both show sinus rhythm. echocardiogram shows normal LV size and function. RV is enlarged with decreased systolic function likely secondary to pulmonary embolism. she will need follow-up for atrial fibrillation as an outpatient. I will also recommend that we get the EKG from the previous hospital which demonstrated atrial fibrillation. I have not seen anything in the chart. Thank you for your consultation. Please call me if you have any questions. Afsaneh Mcdaniel MD, FACP, FACC, FSCAI, FHRS, CCDS Interventional Cardiology Cardiac Electrophysiology Vascular Medicine and Endovascular Interventions Lizz MCDANIEL MD Mar 01, 2017 4:09 pm
[2017-03-01] MEDS ORDERED: METF500T4 PO (19:04)
[2017-03-01] MEDS ORDERED: APIX5TAB PO (19:04)
[2017-03-01] MEDS ORDERED: DILT120C82 PO (19:04)
[2017-03-01] MEDS ORDERED: LISI40TA PO (19:04)
[2017-03-01 19:05] VITALS: BP 97/61
[2017-03-02] MEDS: DICLOFENAC POTASSIUM 50 MG PO SCH ×2 (06:37→12:47)
[2017-03-02] MEDS: MULTIVIT W/MINERALS TAB (THERAGRAN M) PO SCH (06:37)
[2017-03-02] MEDS: metFORMIN 500 MG (GLUCOPHAGE) TAB PO SCH (06:38)
[2017-03-02 06:45] VITALS: BP 115/76
[2017-03-02] MEDS ORDERED: metFORMIN 500 MG (GLUCOPHAGE) TAB PO SCH (07:00)
[2017-03-02 08:11] VITALS: BP 120/63
[2017-03-02] MEDS: GABAPENTIN 300 MG (NEURONTIN) CAP PO SCH ×2 (08:16→12:11)
[2017-03-02] MEDS: DILTIAZEM 120 MG (CARDIZEM CD) CAP PO SCH (08:16)
[2017-03-02] MEDS: lisINopril 20 MG (ZESTRIL) TAB PO SCH (08:17)
[2017-03-02] MEDS: ASPIRIN E.C. 81 MG (ECOTRIN) TAB PO SCH (08:17)
[2017-03-02] MEDS: APIXABAN 5 MG (ELIQUIS) TABLET PO SCH (08:17)
[2017-03-02] MEDS: HYDROCHLOROTHIAZIDE 12.5 MG (HCTZ) CAP PO SCH (08:17)
--- NOTE | 2017-03-02 08:40 | PM & R (SOAP) Progress Note ---
Subjective Time Seen by Provider: 08:00 Subjective/Events-last exam Patient was seen in her room this AM Patient Modified Independent in room. Objective Exam Last Set of Vital Signs Vital Signs Date Time Temp Pulse Resp B/P (MAP) Pulse Ox O2 Delivery O2 Flow Rate FiO2 03/02/17 08:37 98.5 03/02/17 08:11 65 20 120/63 98 Nasal Cannula 2.00 Capillary Refill : I&O Intake and Output 03/03/17 00:00 Intake Total 800 ml Balance 800 ml Intake Oral 800 ml # Voids 3 # Bowel Movements 1 General: Alert, Oriented X3, Cooperative, No Acute Distress HEENT: Atraumatic, PERRLA, EOMI, Mucous Memb Moist/[place], Other (02 by N/C in place) Neck: Supple, No JVD Lungs: Clear to Auscultation Heart: Regular Rate Abdomen: Normal Bowel Sounds, Soft, No Tenderness Extremities: Other (island dressing left knee) Neuro: Other (Limited AROM of left knee otherwise functional strength) Results Lab Laboratory Tests 02/27/17 10:56: Glucometer 151H 02/27/17 16:01: Glucometer 152H 02/27/17 20:09: Glucometer 235H 02/28/17 05:32: Glucometer 139H 02/28/17 10:50: Glucometer 128H 03/01/17 04:54: Glucometer 110 03/02/17 05:31: Glucometer 130H Assessment/Plan Assessment S/P LTKR for painful DJD OSH Postop afib now controlled with meds Postop PE on Eliquis Postop Resp insuffiency on supplemental 02 DM controlled Possible ROSIBEL DR Barrera has seen today HTN controlled Hypokalemia Postop anemia Plan Discharge today to home with family and HHC with 02 supplementation Current meds reviewed F/U with Ortho and PCP and Pulm and Cardiology See orders. HIREN BURNETT MD Mar 02, 2017 08:40
[2017-03-02] MEDS: HYDROcodone/APAP 10 MG/325 MG (LORTAB) TAB PO PRN (08:45)
--- NOTE | 2017-03-02 10:39 | Cardiology Progress Note ---
Cardiology SOAP Progress Note Subjective: Improved shortness of breath Objective: I&O/Vital Signs Vital Sign - Last 12Hours 03/02/17 03/02/17 03/02/17 03/02/17 01:00 06:45 08:11 08:37 Temp 98.8 98.6 98.5 Pulse 67 76 65 Resp 20 20 B/P (MAP) 115/76 120/63 Pulse Ox 97 98 O2 Delivery Nasal Cannula Nasal Cannula O2 Flow Rate 2.00 2.00 Weight (Pounds): 206 Weight (Ounces): 1.6 Weight (Calculated Kilograms): 93.899023 Constitutional: No appears stated age, No AAO x 3, No apparent distress, No PERRL, No well-developed, No well-nourished, No other Respiratory: No accessory muscle use, No respiratory distress, No chest tender , No chest expansion is symmetric, No chest is bilaterally symmetric, No lungs clear to percussion, No lungs clear to auscultation, No crackles, No rhonchi, No rales, No stridor, No wheezing, No pleural rub, No other Cardiovascular: regular rate-rhythm, S1 and S2 Gastrointestional: No tender, No soft, No round, No distended, No pulsatile mass, No organomegaly, No guarding, No rebound, No tenderness, No hernia, No mass, No audible bowel sounds, No abnormal bowel sounds, No abdominal bruits, No spleenomegaly, No other Extremities: No normal range of motion, No non-tender, No normal inspection, No pedal edema, No calf tenderness, No normal capillary refill, No pelvis stable , No calf tenderness, No inflammation, No pedal edema, No slow capillary refill , No swelling, No other, No abrasion, No clubbing, No cyanosis, No ecchymosis, No laceration, No no lower extremity edema bilateral, No significant edema, No tenderness, No wound Neurologic/Psychiatric: No polysom tech II-XII nml as tested, No no motor/sensory deficits, No alert, No normal mood/affect, No oriented x 3, No abnormal cerebellar tests, No abnormal polysom tech II-XII, No abnormal gait, No aphasia, No EOM palsy, No facial droop, No motor weakness, No sensory deficit, No depressed affect, No disoriented x 3, No other, No grossly intact, No power is 5/5 both on sides Skin: No normal color, No warm/dry, No cyanosis, No cool, No diaphoresis, No damp, No ecchymosis, No jaundice, No mottled, No pallor, No rash, No tattoos/ piercings, No ulcerations, No rash on exposed areas, No ulcerations on exposed areas, No other Results/Procedures: Labs Laboratory Tests 03/02/17 05:31: Glucometer 130H A/P: Assessment/Dx: Shortness of breath, atrial fibrillation with rapid ventricular rate, pulmonary embolism Plan: Continue high-dose Eliquis for pulmonary embolism. Oxygen saturation on 2 L is reasonable. Continue Cardizem for atrial fibrillation. EKG and telemetry both show sinus rhythm. Can discontinue telemetry echocardiogram shows normal LV size and function. RV is enlarged with decreased systolic function likely secondary to pulmonary embolism. she will need follow-up for atrial fibrillation as an outpatient; I'll be happy to follow-up if the patient wants follow-up in [facility]. I will also recommend that we get the EKG from the previous hospital which demonstrated atrial fibrillation. I have not seen anything in the chart. Thank you for your consultation. Please call me if you have any questions. Afsaneh Mcdaniel MD, FACP, FACC, FSCAI, FHRS, CCDS Interventional Cardiology Cardiac Electrophysiology Vascular Medicine and Endovascular Interventions Lizz MCDANIEL MD Mar 02, 2017 10:39
--- NOTE | 2017-03-02 11:34 | Therapy Team Discharge Summary ---
Therapy Discharge Summary Discharge Recommendations Date of Discharge Therapy D/C Recommendations: Home w/ Family Support Occupational Therapy Pt admitted to ARU following left TKA with postoperative PE. On admission pt required CGA for transfers, and min assist for bathing and LE dressing. Skilled OT intervention focused on ADL training, transfers, strengthening, adaptive equipment training, and home safety education. Pt made good progress with therapy and by discharge is completing ADLs and transfers with modified independence. Pt met OT LTG. Pt discharging this date. D/c ARU OT at this time. PT Dramatic Agent Goals [facility] Goals PT [facility] Goals Time Frame: Mar 20, 2017 Transfers (B,C,W/C) (FIM): 6 (met) Roll Left to Right (QC): 6 (met) Sit to Lying (QC): 6 (met) Lying-Sitting on Side/Bed(QC): 6 (met) Sit to Stand (QC): 6 (met) Car Transfer (QC): 4 (met) Gait (FIM): 6 Distance: 300' Walk 10 feet (QC): 6 (met) Walk 10ft-Uneven Surface(QC): 6 Walk 50ft with 2 Turns (QC): 6 (met) Walk 150 ft (QC): 6 (met) Gait Assistive Device: FWW Stairs (FIM): 5 # of Steps: 12 1 Step (curb) (QC): 4 4 Steps (QC): 4 12 Steps (QC): 4 Stairs Level Of Assist: 5 OT Dramatic Agent Goals Dramatic Agent Goals Time Frame: Mar 20, 2017 Eating (FIM): 7 Eating (QC): 6 Oral Hygiene (QC): 6 Grooming(FIM): 6 Bathing(FIM): 6 Shower/Bathe Self (QC): 6 Upper Body Dressing(FIM): 6 Upper Body Dressing (QC): 6 Lower Body Dressing(FIM): 5 Lower Body Dressing (QC): 5 On/Off Footwear (QC): 6 Toileting(FIM): 6 Toileting Hygiene (QC): 6 Toilet/Commode Transfer(FIM): 6 Toilet/Commode Transfer (QC): 6 Shower Transfer(FIM): 6 Additional Goals: 2-Verbalize Understanding, 3-ImproveStrength/Dara 1=Demonstrate adherence to instructed precautions during ADL tasks. 2=Patient will verbalize/demonstrate understanding of assistive devices/ modifications for ADL. 3=Patient will improve strength/tolerance for activity to enable patient to perform ADL's. DASHA SHELTON OT Mar 02, 2017 11:34
[2017-03-02 12:30] VITALS: BP 120/63
--- NOTE | 2017-03-02 12:57 | Therapy Team Discharge Summary ---
Therapy Discharge Summary Discharge Recommendations Date of Discharge Therapy D/C Recommendations: Home w/ Family Support Physical Therapy Patient came to rehab following a left TKA and pulmonary emolism. Upon evaluation patient performed bed mobility with SBA, supine to sit and sit to stand with CGA, ambulated 150' with a rolling walker with CGA, and went up and down 4 steps using 2 handrails with CGA. Patient has been performing bed mobility and transfer training, balance and endurance training, functional strengthening, stair training, gait training, and education. Patient has made good progress and has met all of her salvage determiner goals except for stairs. Now, patient performs bed mobility and transfers with mod I, ambulates 200' with a rolling walker with mod I (including 50' with at least 2 turns of 90 degrees and 10' over an uneven surface), performs a car transfer with SBA, can merchandise pickup/receiving associate an object from the floor with CGA, and can go up and down 12 steps using 2 handrails with CGA. Patient is being discharged from this facility today and will be discharged from PT at this time. PT Longterm Goals Gluing Machine Operator Electronic Goals PT Gluing Machine Operator Electronic Goals Time Frame: Mar 20, 2017 Transfers (B,C,W/C) (FIM): 6 (met) Roll Left to Right (QC): 6 (met) Sit to Lying (QC): 6 (met) Lying-Sitting on Side/Bed(QC): 6 (met) Sit to Stand (QC): 6 (met) Car Transfer (QC): 4 (met) Gait (FIM): 6 Distance: 300' Walk 10 feet (QC): 6 (met) Walk 10ft-Uneven Surface(QC): 6 Walk 50ft with 2 Turns (QC): 6 (met) Walk 150 ft (QC): 6 (met) Gait Assistive Device: FWW Stairs (FIM): 5 # of Steps: 12 1 Step (curb) (QC): 4 4 Steps (QC): 4 12 Steps (QC): 4 Stairs Level Of Assist: 5 OT Gluing Machine Operator Electronic Goals Gluing Machine Operator Electronic Goals Time Frame: Mar 20, 2017 Eating (FIM): 7 Eating (QC): 6 Oral Hygiene (QC): 6 Grooming(FIM): 6 Bathing(FIM): 6 Shower/Bathe Self (QC): 6 Upper Body Dressing(FIM): 6 Upper Body Dressing (QC): 6 Lower Body Dressing(FIM): 5 Lower Body Dressing (QC): 5 On/Off Footwear (QC): 6 Toileting(FIM): 6 Toileting Hygiene (QC): 6 Toilet/Commode Transfer(FIM): 6 Toilet/Commode Transfer (QC): 6 Shower Transfer(FIM): 6 Additional Goals: 2-Verbalize Understanding, 3-ImproveStrength/Dara 1=Demonstrate adherence to instructed precautions during ADL tasks. 2=Patient will verbalize/demonstrate understanding of assistive devices/ modifications for ADL. 3=Patient will improve strength/tolerance for activity to enable patient to perform ADL's. EVON JUSTIN PT Mar 02, 2017 12:57
[2017-03-05] MEDS ORDERED: APIXABAN 5 MG (ELIQUIS) TABLET PO SCH (21:00)
== END 2017-03-02 12:30 | disposition home health service (06) | DRG 559 ==
PROVIDERS: ADMIT Physical Medicine & Rehabilitation; ATTEND Physical Medicine & Rehabilitation
DX: Z47.1 Aftercare following joint replacement surgery (principal); Z96.652 Presence of left artificial knee joint; I26.99 Other pulmonary embolism without acute cor pulmonale; I48.91 Unspecified atrial fibrillation; E11.9 Type 2 diabetes mellitus without complications; I34.1 Nonrheumatic mitral (valve) prolapse; I10 Essential (primary) hypertension; E87.6 Hypokalemia; D64.9 Anemia, unspecified; F32.9 Major depressive disorder, single episode, unspecified; Z99.81 Dependence on supplemental oxygen
CPT/HCPCS: 71020; 82962; 93005; 93306; 94760; 94761

== ENCOUNTER 2017-04-10 20:50 | Outpatient (CLI) | payer BC ==
[~2017-04-10 20:50] MED LIST: APIX5TAB PO; ASPI-983 PO; DICL50TA4 PO; DILT120C82 PO; GABA-488 PO; HYDR-3820 PO; HYDR12.5 PO; LISI40TA PO; METF1000 PO; METF500T4 PO; PEDI1TAB46 PO; POTA99TA7 PO
== END 2017-04-11 06:37 | disposition home or self-care (01) ==
LOC: SLEEP 20:50
PROVIDERS: ATTEND Nurse Practitioner Family
DX: G47.33 Obstructive sleep apnea (adult) (pediatric) (principal)
CPT/HCPCS: 95811

== ENCOUNTER 2017-04-17 07:26 | Outpatient (RCR) | payer BC | END 2017-06-21 | disposition home or self-care (01) | LOC: CARD 07:26 | PROVIDERS: ATTEND Internal Medicine Interventional Cardiology | DX: I48.91 Unspecified atrial fibrillation (principal) | CPT/HCPCS: 93270 ==

== ENCOUNTER → 2017-05-10 | Day surgery (SDC) | payer BC ==
[~2017-05-10] VITALS: Ht 153.7 cm; Wt 90.7 kg
[~2017-05-10] MED LIST changes: +LIDOCAINE 1% INJ 50 ML (XYLOCAINE) VIAL ONE
[2017-05-10 08:52] VITALS: BP 158/79
--- NOTE | 2017-05-10 13:27 | Implantation of Loop Monitor ---
Implant of Loop Monitior PROCEDURE PHYSICIAN: Afsaneh Mcdaniel MD IMPLANTATION OF LOOP MONITOR REPORT DATE OF PROCEDURE: 05/10/17 ATTENDING PHYSICIAN: Dr. Raheem Mcdaniel. REFERRING PHYSICIAN: PERFORMING PHYSICIAN: Dr. Raheem Mcdaniel. INDICATION: Long-term surveillance of atrial fibrillation PREOP DIAGNOSIS: Long-term surveillance of atrial fibrillation POSTOP DIAGNOSIS: Atrial fibrillation, s/p implantation of loop recorder. PROCEDURE DETAILS: The patient is a 57 female with history of paroxysmal atrial fibrillation requiring long-term surveillance. Therefore implantable loop recorder was discussed and agreed with the patient. Informed consent was taken. All risks and complications were discussed at length. The patient was draped and prepped in the usual sterile fashion. Local anesthesia was lidocaine, which was given in the substernal area close to the 4th intercostal space. Loop monitor was implanted according to the protocol. Steri-Strips were placed at the end of the procedure. There were no complications and the patient tolerated the procedure well. The device was hopTo model 67577. Serial number [id number]. ANESTHESIA: Local anesthesia with lidocaine. COMPLICATIONS: None CONTRAST/FLUOROSCOPY: None CONCLUSION: 1. Successful implantation of loop monitor for recurrent syncope. 2. No complication and the patient tolerated the procedure well. Afsaneh Mcdaniel MD, [facility], [facility] Cardiac Electrophysiology Lizz MCDANIEL MD May 10, 2017 1:27 pm
== END | disposition home or self-care (01) ==
LOC: CATH 08:30
PROVIDERS: ATTEND Internal Medicine Interventional Cardiology
DX: I48.0 Paroxysmal atrial fibrillation (principal); R55 Syncope and collapse; I10 Essential (primary) hypertension; E11.9 Type 2 diabetes mellitus without complications; I27.20 Pulmonary hypertension, unspecified; G47.30 Sleep apnea, unspecified; E66.9 Obesity, unspecified; Z68.38 Body mass index [BMI] 38.0-38.9, adult; Z86.711 Personal history of pulmonary embolism; Z79.01 Long term (current) use of anticoagulants; Z79.82 Long term (current) use of aspirin; Z79.84 Long term (current) use of oral hypoglycemic drugs; Z79.899 Other long term (current) drug therapy
CPT/HCPCS: 33282

== ENCOUNTER → 2017-05-24 | Outpatient (CLI) | payer BC ==
[~2017-05-24] MED LIST changes: -LIDOCAINE 1% INJ 50 ML (XYLOCAINE) VIAL ONE
== END ==
LOC: RAD 10:34
PROVIDERS: ATTEND Internal Medicine Interventional Cardiology
DX: I26.99 Other pulmonary embolism without acute cor pulmonale (principal); I27.20 Pulmonary hypertension, unspecified; I51.9 Heart disease, unspecified
CPT/HCPCS: 93306

== ENCOUNTER → 2017-10-26 | Outpatient (CLI) | payer BC ==
[~2017-10-26] MED LIST changes: -METF1000 PO; +METF10002 PO; -METF500T4 PO; +METF500T5 PO
== END ==
LOC: CARD 10:40
PROVIDERS: ATTEND Internal Medicine Interventional Cardiology
DX: I48.91 Unspecified atrial fibrillation (principal); I26.99 Other pulmonary embolism without acute cor pulmonale; I27.20 Pulmonary hypertension, unspecified; I07.1 Rheumatic tricuspid insufficiency
CPT/HCPCS: 93306

== ENCOUNTER → 2018-11-15 | Outpatient (CLI) | payer BC ==
[~2018-11-15] MED LIST changes: +METF-397 PO; +METF-399 PO; -METF10002 PO; -METF500T5 PO; +RT-ALBUTEROL SULF 2.5 MG/3 ML PRE-MIX VIAL INH ONE
== END ==
LOC: RT 13:47
PROVIDERS: ATTEND Nurse Practitioner Family
DX: J30.2 Other seasonal allergic rhinitis (principal); G47.30 Sleep apnea, unspecified
CPT/HCPCS: 94060; 94726; 94729

== ENCOUNTER → 2020-09-23 | Outpatient (CLI) | payer BC ==
[~2020-09-23] MED LIST changes: +ACHYD1T PO; +ASPI-1238 PO; -ASPI-983 PO; -HYDR-3820 PO; -LISI40TA PO; +LISI40TA9 PO; -RT-ALBUTEROL SULF 2.5 MG/3 ML PRE-MIX VIAL INH ONE
== END ==
LOC: CARD 14:00
PROVIDERS: ATTEND Internal Medicine Cardiovascular Disease
DX: I36.1 Nonrheumatic tricuspid (valve) insufficiency (principal); I10 Essential (primary) hypertension; I25.10 Atherosclerotic heart disease of native coronary artery without angina pectoris
CPT/HCPCS: 93306

== ENCOUNTER → 2021-01-06 | Outpatient (CLI) | payer BC ==
[~2021-01-06] MED LIST changes: +RT-ALBUTEROL SULF 2.5 MG/3 ML PRE-MIX VIAL INH ONE
== END ==
LOC: RT 10:42
PROVIDERS: ATTEND Nurse Practitioner Family
DX: J45.909 Unspecified asthma, uncomplicated (principal)
CPT/HCPCS: 94060; 94726; 94729